=== PATIENT | female | born 1945 | race Caucasian/White ===

== ENCOUNTER 2018-07-07 11:25 | Inpatient (IN) | payer OTHER ==
[2018-07-07 12:26] LABS: Absolute Monocytes 0.7 K/uL (0.1-1.3); Basophils % 1.1 % (0-1.3); Eosinophils % 0.4 % (0-4.4); Hematocrit 38.5 % (36.0-45.0); Lymphocytes % 14.2 % (15.3-44.8); MCH 30.9 pg (27.0-35.0); MCV 90.1 fL (80-100); MPV 7.6 fL (7.6-11.3); Monocytes % 5.3 % (3.3-12.3); RBC Red Blood Cell Count 4.27 M/uL (3.86-4.86)
[2018-07-07] MEDS ORDERED: ALBUTEROL 2.5 MG/3 ML NEB SOL ONE (12:28)
[2018-07-07] MEDS ORDERED: METHYLPREDNISOLONE 125 MG INJ ONE (12:28)
[2018-07-07] MEDS ORDERED: IPRATROPIUM BROM 0.5MG/2.5ML ONE (12:28)
[2018-07-07] MEDS ORDERED: CEFTRIAXONE/SWI 1gm 1 GM/10 ML SYR ONE (12:29)
[2018-07-07] MEDS ORDERED: NA CHLORIDE 0.9% 1,000 ML ONE (12:29)
[2018-07-07] MEDS ORDERED: AZITHROMYCIN 500 MG/250 ML BAG ONE (12:29)
[2018-07-07 12:34] LABS: Protime INR 1.11
--- NOTE | 2018-07-07 12:39 | EKG ---
Test Date: 2018-07-07 Test Time: 11:49:15 E [employer] Analyst: CHRISTINE MEASUREMENT RESULTS: Intervals: Rate: 74 WY: 136 QRSD: 90 QT: 356 QTc: 395 [place]: P: 16 WY: 136 QRS: 21 T: 45 INTERPRETIVE STATEMENTS: Normal sinus rhythm Nonspecific ST and T wave abnormality Abnormal ECG Compared to ECG 09/23/2014 07:42:25 Sinus bradycardia no longer present ST (T wave) deviation still present Electronically Signed On 07-07-18 12:38:39 CDT by Didier Arshad
[2018-07-07 12:47] LABS: Urine Blood NEGATIVE (NEG); Urine Glucose NEGATIVE (NEG); Urine Protein 1+ (NEG); Urine Specific Gravity >1.030 (1.005-1.030); Urine pH 5.5 (5.0-7.0)
[2018-07-07 12:57] LABS: ALT/SGPT 18 U/L (12-78); AST/SGOT 20 U/L (15-37); Albumin 3.3 g/dL (3.4-5.0); Alkaline Phosphatase 94 U/L (45-117); BUN Blood Urea Nitrogen 8 mg/dL (7-18); Bicarbonate 24 mmol/L (21-32); Bilirubin Direct < 0.1 mg/dL (0-0.2); Bilirubin Total 0.3 mg/dL (0.2-1.0); CKMB Creatine Kinase MB < 1.0 ng/mL (0.3-3.6); Creatine Phosphokinase 51 U/L (26-192); Glucose Level 181 mg/dL (74-106); Magnesium 1.5 mg/dL (1.8-2.4); NT PRO-BNP 222 pg/mL (<125); Potassium 3.5 mmol/L (3.5-5.1); Protein, Total 7.9 g/dL (6.4-8.2); Sodium Level 141 mmol/L (136-145)
--- NOTE | 2018-07-07 13:37 | EDPHYS ---
Physician Documentation [facility] Name: Allyn Echeverria Age: 72 yrs Sex: Female : 1945 Arrival Date: 07/07/2018 Time: :29 Bed 6 Private MD: out of town, doctor ED Physician Lamine Urban HPI: 07/07 12:45 This 72 yrs old Female presents to ER via Ambulatory with complaints of emily Breathing Difficulty. 12:45 The patient has shortness of breath at rest, with light activity. Onset: The emily symptoms/episode began/occurred 2 day(s) ago. Duration: The symptoms are continuous, and are steadily getting worse. The patient's shortness of breath has no apparent modifying factors. Associated signs and symptoms: The patient has no apparent associated signs or symptoms. Severity of symptoms: At their worst the symptoms were mild in the emergency department the symptoms are unchanged. The patient has not experienced similar symptoms in the past. Historical: - Allergies: 11:40 Magnevist; jl7 11:40 Sulfa (Sulfonamide Antibiotics); jl7 11:40 Crestor; jl7 11:40 Ciprofloxacin; jl7 11:40 Iodine (Anaphylaxis); jl7 - PMHx: 11:40 Hyperlipidemia; Hypertension; jl7 11:48 COPD; jl7 - PSHx: 11:40 Cholecystectomy; Hysterectomy; Ear Tubes; Tonsillectomy; jl7 - Immunization history:: Adult Immunizations up to date. - Social history:: Smoking status: Patient uses tobacco products, smokes one pack cigarettes per day. - Ebola Screening: : No symptoms or risks identified at this time. - Family history:: not pertinent. ROS: 12:45 Constitutional: Negative for fever, chills, and weight loss, Eyes: Negative for injury, emily pain, redness, and discharge, ENT: Negative for injury, pain, and discharge, Neck: Negative for injury, pain, and swelling, Cardiovascular: Negative for chest pain, palpitations, and edema, Abdomen/GI: Negative for abdominal pain, nausea, vomiting, diarrhea, and constipation, Back: Negative for injury and pain, : Negative for injury, bleeding, discharge, and swelling, MS/Extremity: Negative for injury and deformity, Skin: Negative for injury, rash, and discoloration, Neuro: Negative for headache, weakness, numbness, tingling, and seizure, Psych: Negative for depression, anxiety, suicide ideation, homicidal ideation, and hallucinations, Allergy/Immunology: Negative for hives, rash, and allergies, Endocrine: Negative for neck swelling, polydipsia, polyuria, polyphagia, and marked weight changes, Hematologic/Lymphatic: Negative for swollen nodes, abnormal bleeding, and unusual bruising. 12:45 Respiratory: Positive for cough, shortness of breath, wheezing, expiratory. Exam: 12:45 Constitutional: This is a well developed, well nourished patient who is awake, alert, emily and in no acute distress. Head/Face: Normocephalic, atraumatic. Eyes: Pupils equal round and reactive to light, extra-ocular motions intact. Lids and lashes normal. Conjunctiva and sclera are non-icteric and not injected. Cornea within normal limits. Periorbital areas with no swelling, redness, or edema. ENT: Nares patent. No nasal discharge, no septal abnormalities noted. Tympanic membranes are normal and external auditory canals are clear. Oropharynx with no redness, swelling, or masses, exudates, or evidence of obstruction, uvula midline. Mucous membranes moist. Neck: Trachea midline, no thyromegaly or masses palpated, and no cervical lymphadenopathy. Supple, full range of motion without nuchal rigidity, or vertebral point tenderness. No Meningismus. Chest/axilla: Normal chest wall appearance and motion. Nontender with no deformity. No lesions are appreciated. Cardiovascular: Regular rate and rhythm with a normal S1 and S2. No gallops, murmurs, or rubs. Normal PMI, no JVD. No pulse deficits. Abdomen/GI: Soft, non-tender, with normal bowel sounds. No distension or tympany. No guarding or rebound. No evidence of tenderness throughout. Back: No spinal tenderness. No costovertebral tenderness. Full range of motion. Female : Normal external genitalia. Skin: Warm, dry with normal turgor. Normal color with no rashes, no lesions, and no evidence of cellulitis. MS/ Extremity: Pulses equal, no cyanosis. Neurovascular intact. Full, normal range of motion. Neuro: Awake and alert, GCS 15, oriented to person, place, time, and situation. Cranial nerves II-XII grossly intact. Motor strength 5/5 in all extremities. Sensory grossly intact. Cerebellar exam normal. Normal gait. Psych: Awake, alert, with orientation to person, place and time. Behavior, mood, and affect are within normal limits. 12:45 Respiratory: mild respiratory distress is noted, Respirations: labored breathing, that is mild, Breath sounds: decreased breath sounds, rhonchi, wheezing: expiratory Vital Signs: 11:40 BP 136 / 81; Pulse 84; Resp 22 S; Temp 98.2(O); Pulse Ox 99% on R/A; Weight 84.82 kg jl7 (R); Height 5 ft. 4 in. (162.56 cm) (R); Pain 7/10; 12:45 BP 137 / 75; Pulse 74; Resp 20; Pulse Ox 100% on R/A; jb4 13:15 BP 118 / 65; Pulse 77; Resp 20; Pulse Ox 100% on 7% Nebulizer Mask; jb4 14:15 BP 150 / 89; Pulse 92; Resp 20; Pulse Ox 100% on R/A; Pain 3/10; jb4 15:15 BP 150 / 87; Pulse 88; Resp 18; Pulse Ox 97% on R/A; jb4 11:40 Body Mass Index 32.10 (84.82 kg, 162.56 cm) 7 MDM: 11:49 Patient medically screened. [facility] 12:47 Data reviewed: vital signs, nurses notes, lab test result(s), EKG, radiologic studies, [facility] CT scan, plain films. 07/07 11:52 Order name: Basic Metabolic Panel [facility] 07/07 11:52 Order name: CBC with Diff; Complete Time: 13:32 [facility] 07/07 11:52 Order name: Ckmb; Complete Time: 13:32 [facility] 07/07 11:52 Order name: CPK; Complete Time: 13:32 [facility] 07/07 11:52 Order name: LFT's; Complete Time: 13:32 [facility] 07/07 11:52 Order name: Magnesium; Complete Time: 13:32 [facility] 07/07 11:52 Order name: NT PRO-BNP; Complete Time: 13:32 [facility] 07/07 11:52 Order name: PT-INR; Complete Time: 13:32 [facility] 07/07 11:52 Order name: Ptt, Activated; Complete Time: 13:32 [facility] 07/07 11:52 Order name: Troponin (emerg Dept Use Only); Complete Time: 13:32 [facility] 07/07 11:52 Order name: Blood Culture Adult (2) [facility] 07/07 11:52 Order name: Influenza Screen (a \T\ B); Complete Time: 13:32 [facility] 07/07 11:52 Order name: Basic Metabolic Panel; Complete Time: 13:32 [facility] 07/07 12:40 Order name: Urine Dipstick--Ancillary (enter results); Complete Time: 13:32 07/07 11:52 Order name: XRAY Chest (1 view) [facility] 07/07 11:52 Order name: EKG; Complete Time: 11:53 [facility] 07/07 11:52 Order name: Cardiac monitoring; Complete Time: 13:16 [facility] 07/07 11:52 Order name: EKG - Nurse/Tech; Complete Time: 12:28 [facility] 07/07 11:52 Order name: IV Saline Lock; Complete Time: 12:28 [facility] 07/07 13:34 Order name: CT Chest Wo Con [facility] 07/07 13:40 Order name: CONS Physician Consult [facility] 07/07 14:19 Order name: CT [facility] 07/07 15:06 Order name: Diet Ada 1800 Jayme; Complete Time: 15:06 [facility] 07/07 15:56 Order name: Hemoglobin A1c [facility] 07/07 11:52 Order name: Labs collected and sent; Complete Time: 13:16 [facility] 07/07 11:52 Order name: O2 Per Protocol; Complete Time: 12:28 [facility] 07/07 11:52 Order name: O2 Sat Monitoring; Complete Time: 12:28 [facility] 07/07 11:52 Order name: Urine Dipstick-Ancillary (obtain specimen); Complete Time: 13:23 [facility] Administered Medications: 12:40 Drug: SOLU-Medrol 125 mg Route: IVP; Site: left antecubital; jb4 13:19 Follow up: Response: No adverse reaction jb4 12:40 Drug: Albuterol - atroVENT (3:1) (2.5 mg - 0.5 mg) 3 ml Route: Nebulizer; jb4 13:19 Follow up: Response: No adverse reaction jb4 12:50 Drug: NS 0.9% 1000 ml Route: IV; Rate: 125 ml/hr; Site: left antecubital; jb4 15:57 Follow up: Response: No adverse reaction; IV Status: IV converted to saline lock jb4 12:55 Drug: Rocephin - (cefTRIAXone) 1 grams {Note: Administered over 2 minutes per pharmacy jb4 protocol at this time..} Route: IVPB; Infused Over: 30 mins; Site: left antecubital; 12:57 Follow up: IV Status: Completed infusion jb4 13:25 Follow up: Response: No adverse reaction jb4 12:57 Drug: Zithromax 500 mg Route: IVPB; Infused Over: 1 hrs; Site: left antecubital; jb4 14:35 Follow up: Response: No adverse reaction; IV Status: Completed infusion jb4 14:12 Drug: Magnesium Sulfate 2 grams Route: IVPB; Infused Over: 2 hrs; Site: left jb4 antecubital; 15:57 Follow up: Response: No adverse reaction; IV Status: Completed infusion jb4 Disposition: 07/07/18 13:36 Hospitalization ordered by Lacey Cristobal for Inpatient Admission. Preliminary diagnosis are Dyspnea, Pneumonia due to other specified bacteria, Hypomagnesemia, Tobacco abuse counseling, Tobacco use, Elevated white blood cell count. - Bed requested for Telemetry/MedSurg (Inpatient). - Status is Inpatient Admission. jb4 - Condition is Fair. - Problem is new. - Symptoms have improved. UTI on Admission? No Signatures: Dispatcher [employer] EDMS Lamine Urban MD MD cha Bryson, James, RN RN jb4 Mayo Lara RN RN jl7 Annalee Tay RN RN df Corrections: (The following items were deleted from the chart) 15:22 13:36 Hospitalization Ordered by Lacey Cristobal MD for Inpatient Admission. Preliminary df diagnosis is Dyspnea; Pneumonia due to other specified bacteria; Hypomagnesemia; Tobacco abuse counseling; Tobacco use; Elevated white blood cell count. Bed requested for Telemetry/MedSurg (Inpatient). Status is Inpatient Admission. Condition is Fair. Problem is new. Symptoms have improved. UTI on Admission? No. emily 16:00 15:22 07/07/2018 13:36 Hospitalization Ordered by Lacey Cristobal MD for Inpatient jb4 Admission. Preliminary diagnosis is Dyspnea; Pneumonia due to other specified bacteria; Hypomagnesemia; Tobacco abuse counseling; Tobacco use; Elevated white blood cell count. Bed requested for Telemetry/MedSurg (Inpatient). Status is Inpatient Admission. Condition is Fair. Problem is new. Symptoms have improved. UTI on Admission? No. df
--- NOTE | 2018-07-07 13:37 | ER ---
Nurse's Notes [facility] Name: Allyn Echeverria Age: 72 yrs Sex: Female : 1945 Arrival Date: 07/07/2018 Time: 11:29 Bed 6 Private MD: out of town, doctor Diagnosis: Dyspnea;Pneumonia due to other specified bacteria;Hypomagnesemia;Tobacco abuse counseling;Tobacco use;Elevated white blood cell count Presentation: 07/07 11:36 Presenting complaint: Patient states: My lungs hurt for the last couple of days, having jl7 a hard time breathing. Transition of care: patient was not received from another setting of care. Onset of symptoms was July 05, 2018. Risk Assessment: Do you want to hurt yourself or someone else? Patient reports no desire to harm self or others. Care prior to arrival: None. 11:36 Method Of Arrival: Ambulatory [facility] 11:36 Acuity: KANDY 3 jl7 14:48 Initial Sepsis Screen: Does the patient meet any 2 criteria? RR > 20 per min. Yes Does jb4 the patient have a suspected source of infection? Yes: Productive cough/pneumonia. Triage Assessment: 14:59 Respiratory: the patient has mild shortness of breath. jb4 Historical: - Allergies: 11:40 Magnevist; jl7 11:40 Sulfa (Sulfonamide Antibiotics); jl7 11:40 Crestor; jl7 11:40 Ciprofloxacin; jl7 11:40 Iodine (Anaphylaxis); jl7 - PMHx: 11:40 Hyperlipidemia; Hypertension; jl7 11:48 COPD; jl7 - PSHx: 11:40 Cholecystectomy; Hysterectomy; Ear Tubes; Tonsillectomy; jl7 - Immunization history:: Adult Immunizations up to date. - Social history:: Smoking status: Patient uses tobacco products, smokes one pack cigarettes per day. - Ebola Screening: : No symptoms or risks identified at this time. - Family history:: not pertinent. Screenin:15 Abuse screen: Denies threats or abuse. Nutritional screening: No deficits noted. jb4 Tuberculosis screening: No symptoms or risk factors identified. Fall Risk IV access (20 points). Total Owen Fall Scale indicates No Risk (0-24 pts). Assessment: 12:15 General: Appears in no apparent distress. uncomfortable, Behavior is calm, cooperative, jb4 appropriate for age. Pain: Complains of pain in chest Pain does not radiate. Pain currently is 6 out of 10 on a pain scale. at worst was 10 out of 10 on a pain scale. Quality of pain is described as "like a bat is hitting me." Pain began 2-3 days ago. Is intermittent. Neuro: Level of Consciousness is awake, alert, obeys commands, Oriented to person, place, time, situation. Cardiovascular: Heart tones S1 S2 present Patient's skin is warm and dry. Rhythm is sinus rhythm. Respiratory: Reports shortness of breath cough that is non-productive, Airway is patent Respiratory effort is even, labored, Breath sounds are diminished bilaterally. Onset: The symptoms/episode began/occurred Saturday. GI: Abdomen is round Bowel sounds present X 4 quads. : No signs and/or symptoms were reported regarding the genitourinary system. EENT: No signs and/or symptoms were reported regarding the EENT system. Derm: Skin is intact, Skin is pink, warm \\T\\ dry. Musculoskeletal: No signs and/or symptoms reported regarding the musculoskeletal system. 13:27 Reassessment: Patient appears in no apparent distress at this time. Patient and/or jb4 family updated on plan of care and expected duration. Pain level reassessed. Pt reports breathing better after breathing treatment. 13:50 Reassessment: Pt left for CT. jb4 14:10 Reassessment: Patient appears in no apparent distress at this time. Patient and/or jb4 family updated on plan of care and expected duration. Pain level reassessed. Pt back from CT. Family is at the bedside. 14:40 Reassessment: Dr. Cristobal at the bedside. jb4 15:10 Reassessment: Patient appears in no apparent distress at this time. Patient and/or jb4 family updated on plan of care and expected duration. Pain level reassessed. Pt reports feeling better. family at the bedside. Vital Signs: 11:40 BP 136 / 81; Pulse 84; Resp 22 S; Temp 98.2(O); Pulse Ox 99% on R/A; Weight 84.82 kg jl7 (R); Height 5 ft. 4 in. (162.56 cm) (R); Pain 7/10; 12:45 BP 137 / 75; Pulse 74; Resp 20; Pulse Ox 100% on R/A; jb4 13:15 BP 118 / 65; Pulse 77; Resp 20; Pulse Ox 100% on 7% Nebulizer Mask; jb4 14:15 BP 150 / 89; Pulse 92; Resp 20; Pulse Ox 100% on R/A; Pain 3/10; jb4 15:15 BP 150 / 87; Pulse 88; Resp 18; Pulse Ox 97% on R/A; jb4 11:40 Body Mass Index 32.10 (84.82 kg, 162.56 cm) jl7 ED Course: 11:29 Patient arrived in ED. mr 11:29 out of town, doctor is Private Physician. mr 11:37 Triage completed. jl7 11:40 Arm band placed on right wrist. jl7 11:49 Lamine Urban MD is Attending Physician. emily 11:56 EKG done, by vascular ultrasound technician. reviewed by Lamine Urban MD. at1 12:15 Patient has correct armband on for positive identification. Placed in gown. Bed in low jb4 position. Call light in reach. Side rails up X2. tutor on. Pulse ox on. NIBP on. 12:15 Inserted saline lock: 20 gauge in left antecubital area, using aseptic technique. Blood jb4 collected. 12:25 Urine collected: clean catch specimen, clear, lui colored. jp3 12:27 Juancarlos Haynes, AMY is Primary Nurse. jb4 12:45 Initial lab(s) drawn, by nj, sent to lab. First set of blood cultures drawn Second set jb4 of blood cultures drawn by me. 13:25 X-ray completed. Portable x-ray completed in exam room. Patient tolerated procedure ml well. 13:26 XRAY Chest (1 view) In Process Unspecified. EDMS 13:35 Lacey Cristobal MD is Hospitalizing Provider. emily 15:58 No provider procedures requiring assistance completed. Patient admitted, IV remains in jb4 place. Administered Medications: 12:40 Drug: SOLU-Medrol 125 mg Route: IVP; Site: left antecubital; jb4 13:19 Follow up: Response: No adverse reaction jb4 12:40 Drug: Albuterol - atroVENT (3:1) (2.5 mg - 0.5 mg) 3 ml Route: Nebulizer; jb4 13:19 Follow up: Response: No adverse reaction jb4 12:50 Drug: NS 0.9% 1000 ml Route: IV; Rate: 125 ml/hr; Site: left antecubital; jb4 15:57 Follow up: Response: No adverse reaction; IV Status: IV converted to saline lock jb4 12:55 Drug: Rocephin - (cefTRIAXone) 1 grams {Note: Administered over 2 minutes per pharmacy jb4 protocol at this time..} Route: IVPB; Infused Over: 30 mins; Site: left antecubital; 12:57 Follow up: IV Status: Completed infusion jb4 13:25 Follow up: Response: No adverse reaction jb4 12:57 Drug: Zithromax 500 mg Route: IVPB; Infused Over: 1 hrs; Site: left antecubital; jb4 14:35 Follow up: Response: No adverse reaction; IV Status: Completed infusion jb4 14:12 Drug: Magnesium Sulfate 2 grams Route: IVPB; Infused Over: 2 hrs; Site: left jb4 antecubital; 15:57 Follow up: Response: No adverse reaction; IV Status: Completed infusion jb4 Outcome: 13:36 Decision to Hospitalize by Provider. emily 15:58 Admitted to Tele accompanied by tech, via wheelchair, room 429, with chart, Report jb4 called to AMY Brady 15:58 Condition: stable 15:58 Instructed on the need for admit, Demonstrated understanding of instructions. 16:00 Patient left the ED. jb4 Signatures: Dispatcher [employer] EDLamine Landin MD MD cha Rivera, Maria Nelson, Keely Aguirre, senior consumer insights consultant EKG Tat1 Juancarlos Haynes RN RN jb4 Mayo Lara RN RN jl7 Kale Arias jp3 Corrections: (The following items were deleted from the chart) 13:17 12:15 Cardiovascular: Heart tones S1 S2 present Patient's skin is warm and dry. Rhythm jb4 is jb4 14:43 12:55 Rocephin - (cefTRIAXone) 1 grams IVPB in left antecubital over 30 mins jb4 jb4 14:51 14:48 Initial Sepsis Screen: Does the patient meet any 2 criteria? Does the patient jb4 have a suspected source of infection? Yes: Productive cough/pneumonia jb4
--- NOTE | 2018-07-07 13:40 | RAD REPORT ---
EXAM DESCRIPTION: RAD - Chest Single View - 07/07/2018 1:26 pm CLINICAL HISTORY: Difficulty breathing, COPD, hypertension COMPARISON: August 2014 TECHNIQUE: AP portable chest image was obtained 1319 hours . FINDINGS: Masslike density is superimposed on the right hilum representing a substantial change from the 2014 study. There is interstitial and alveolar opacification in the lower right lung field parti ally obscuring the right hemidiaphragm. Small right pleural effusion is present. Trachea has not young ged in positioning. Left lung field is clear. Heart size is normal. No left-sided pleural effusion. N o pneumothorax. No gross bony abnormality seen. No acute aortic findings suspected. IMPRESSION: Right base pleural and parenchymal opacification along with masslike density at the righ t hilum. In the acute clinical setting this could all be related to pneumonia. Underlying malignancy cannot be excluded for the hilum finding. Contrast-enhanced CT imaging may be helpful for further characterization.
[2018-07-07] MEDS ORDERED: Magnesium Sulfate 2gm IVPB 2 G/50 ML BAG IV ONE (14:11)
--- NOTE | 2018-07-07 14:18 | RAD REPORT ---
EXAM DESCRIPTION: CT - Thorax Wo Con - 07/07/2018 2:03 pm CLINICAL HISTORY: Difficulty breathing, hypertension, abnormal chest film COMPARISON: Portable chest July 07 TECHNIQUE: Axial 5 mm thick images of the chest were obtained without IV contrast. All CT scans are performed using dose optimization technique as appropriate and may include automated exposure control or mA/KV adjustment according to patient size. FINDINGS: In the superior right lower lobe at the hilum there is a 6 centimeter rounded mass. Margin s are lobulated with stranding or spiculation changes present as well. There is interstitial and alve olar opacification that extends into the posterior and lateral right base. A minimal right pleural ef fusion is seen. The right lower lobe mass encircles and at least partially obstructs the right lower lobe bronchus and segmental bronchi. The right lower lobe mass does abut both the major and minor fis sures on the right. No definitive breech of the fissures. No other mass or nodularity on the right. L eft lung field is clear. No left-sided pleural effusion. No pneumothorax. No abnormal mediastinal or hilar masses or lymphadenopathy seen. No gross aortic or pulmonary artery finding suspected. Assessment is limited in the absence of IV contrast. No pericardial effusion. No chest wall mass or abnormal axillary lymphadenopathy. A 2.7 centimeter right adrenal mass is present only partially imaged. IMPRESSION: A 6 centimeter right infrahilar and right lower lobe mass is present with small right pl eural effusion and right lung base airspace opacification. Single most likely etiology is right lower lobe malignancy with postobstructive pneumonia at the base . An atypical masslike pneumonia is felt to be significantly less likely etiology. A 2.7 centimeter right adrenal mass is present only partially imaged.
[2018-07-07] MEDS ORDERED: IPRATROPIUM BROM 0.5MG/2.5ML NEB PRN (14:23)
[2018-07-07] MEDS ORDERED: ALBUTEROL 2.5 MG/3 ML NEB SOL NEB PRN (14:23)
[2018-07-07] MEDS ORDERED: ONDANSETRON 4 MG/2 ML VIAL IV PRN (14:23)
[2018-07-07 16:27] VITALS: BMI 32.1
[2018-07-07] MEDS ORDERED: POTASSIUM 25 MEQ EFFERV TAB PO ONE (17:00)
[2018-07-07] MEDS: INSULIN -REGULAR HUMAN 50 UNIT/0.5 ML ML SQ SCH ×2 (18:09→20:56)
[2018-07-07] MEDS ORDERED: CEFTRIAXONE 1 GM/NS 50 ML 50 ML IV SCH (21:00)
[2018-07-07] MEDS: ACETAMINOPHEN 500 MG TAB PO PRN (22:12)
[2018-07-07] MEDS: CEFTRIAXONE/SWI 1gm 1 GM/10 ML SYR IV SCH (23:37)
--- NOTE | 2018-07-08 01:42 | HP ---
Date of Admission: 07/07/2018 Primary Care Physician: Nurse practitioner in [place]. Code Status: Do not resuscitate. The patient has a living will. No medical power of pit clerk. History Of Present Illness: The patient is a 72-year-old female with past medical history of hypothy roidism; diabetes mellitus type 2, which is diet controlled; history of cigarette smoking for the pas t 66 years; COPD, on oxygen p.r.n.; hypertension, who was in her usual state of health until 3 days p rior to admission when the patient had sudden onset of ear pain, some congestion, and sinusitis type symptoms. The patient went to see her primary care provider, was given ear drops, however, did not h ave any improvement. She went back and was placed on p.o. antibiotics with amoxicillin. The patient has taken more than 2 days worth of medications. The patient does report some improvement in her co ndition. She also reported some shortness of breath that is more than her baseline. She is having t o use her nebulizer treatments and oxygen since Saturday around the clock. She denies any significant sputum production or cough. She also describes some pain around the right lateral chest which is rad iating to the left. The patient therefore came in for further evaluation of her symptoms. Her sympt oms are constant, moderate, progressively worsening. Upon arrival, her vital signs showed some tachy pnea. She was 99% on room air. Her workup revealed a white count of 13.9 with left shift. Magnesiu m was low at 1.5. Troponin was negative. The patient was then referred for admission. The patient was given breathing treatments and IV antibiotics as well as magnesium. Influenza screen was done wh ich was negative. When the patient was seen, she was awake, alert, oriented x3, in some mild distres s, accompanied by her daughter. Past Medical History: Hypothyroidism; hypertension; diabetes mellitus type 2, treated with diet javy fications; COPD, on oxygen as needed; gastroesophageal reflux disease. Past Surgical History: Cholecystectomy, hysterectomy, tonsillectomy. Allergies: TO CIPRO, CAUSES RASH; CRESTOR, WHICH CAUSES TENDONITIS; SULFA, CAUSES ANAPHYLAXIS; AND M RI CONTRAST, WHICH ALSO CAUSES ANAPHYLAXIS. Medications: List reviewed. Social History: The patient smokes a pack a day. She has been smoking for the past 66 years. No al cohol use or illicit drug use. The patient lives at home, has good social support. Family History: The patient states that heart disease and strokes run in the family. Review of Systems: An 11-point system reviewed, negative except as per HPI. Physical Examination: Vital Signs: Blood pressure 136/81, pulse 84, respirations 22, temperature 98.2, O2 99% on room air. General: Awake, alert, oriented x3, in some mild distress. HEENT: Normocephalic, atraumatic. PERRLA. EOMI. Moist mucous membranes. Oropharynx is clear. Po or dentition. Conjunctivae are anicteric. Neck: Supple. No JVD. Trachea midline. CV: S1, S2. Regular rate and rhythm. Peripheral pulses present. Significant pulses weak bilateral ly. Respiratory: Diminished breath sounds on the right. No wheezing. No stridor. No use of accessory muscles. The patient is slightly tachypneic. Gastrointestinal: Abdomen is soft, nontender, nondistended. Positive bowel sounds. No hepatomegaly . Extremities: No clubbing, cyanosis, or edema. No calf tenderness. Neuro: Cranial nerves 2 through 12 intact grossly. No focal neurological deficit. Speech is normal . Strength is 5/5 bilateral upper and lower extremities. Sensation intact to light touch. Skin: No rashes. Normal skin turgor. The patient does have a healing abrasion on the left lower ex tremity. Psych: Mood is okay. Affect is full. Insight and judgment are fair. Laboratory Data: UA shows negative nitrite, negative leukocyte. Sodium 141, potassium 3.5, chloride 107, CO2 24, BUN 8, creatinine 0.8, glucose 181, calcium 9, magnesium 1.5. Troponin less than 0.02. BNP 222. Albumin 3.3. INR 1.11. WBC 13.9, H and H 13.2/38.5, platelets 478, neutrophils 79%. CT chest personally reviewed shows a 6 cm right infrahilar and right lower lobe mass present with small right pleural effusion and right lung base airspace opacification. The most likely etiology is righ t lower lobe malignancy with postobstructive pneumonia at the base. A 2.7 cm right adrenal mass is p resent, only partially imaged. Chest x-ray, personally reviewed, shows right base pleural and parenc hymal opacification along with mass-like density at the right hilum. EKG shows normal sinus rhythm, nonspecific ST-T wave abnormality, rate of 74. Assessment: A 72-year-old female with: 1.Right lower lobe pneumonia with small pleural effusion. We will continue with IV antibiotics. Ob tain blood cultures and sputum cultures. Likely postobstructive pneumonia. 2.Right infrahilar and right lower lobe mass 6 cm, likely malignancy. The patient has a significant history of smoking. Pulmonology has been consulted. Will likely need biopsy versus possible bronch oscopy. We will discuss further with Dr. Grey. The patient made aware of the diagnosis. She wi shes to undergo further workup including invasive measurements such as biopsy. She understands that she may need radiation chemotherapy to which she is agreeable. 3.Hypothyroidism. We will resume home dose of Synthroid. 4.Diabetes mellitus type 2, non-insulin dependent with hyperglycemia. We will check hemoglobin A1c. The patient is only on diet modification. 5.Chronic obstructive pulmonary disease, chronic bronchitis, uses oxygen as needed. 6.Gastroesophageal reflux disease without esophagitis. 7.Hyperlipidemia, also diet controlled. 8.Essential hypertension. We will resume home medications as appropriate. 9.Gastrointestinal and deep venous thrombosis prophylaxis with PPI and Lovenox. Plan: Admit the patient to Med-Surg, place as inpatient. Overall poor prognosis. DINO Voice ID: [id number]
[2018-07-08 04:14] LABS: Absolute Lymphocytes (CBC) 2.2 K/uL (0.7-4.9); Absolute Monocytes 0.8 K/uL (0.1-1.3); Basophils % 0.7 % (0-1.3); Eosinophils % 0.1 % (0-4.4); Hematocrit 37.4 % (36.0-45.0); Lymphocytes % 18.4 % (15.3-44.8); MCH 30.7 pg (27.0-35.0); MCV 90.8 fL (80-100); MPV 7.7 fL (7.6-11.3); Monocytes % 6.6 % (3.3-12.3); RBC Red Blood Cell Count 4.12 M/uL (3.86-4.86)
[2018-07-08 04:25] LABS: BUN Blood Urea Nitrogen 9 mg/dL (7-18); Bicarbonate 26 mmol/L (21-32); Glucose Level 181 mg/dL (74-106); Magnesium 1.8 mg/dL (1.8-2.4); Potassium 4.2 mmol/L (3.5-5.1); Sodium Level 140 mmol/L (136-145)
[2018-07-08] MEDS: PANTOPRAZOLE 40MG TABLET PO SCH (05:54)
[2018-07-08] MEDS: LEVOTHYROXINE SOD 0.1 MG TAB PO SCH (05:54)
[2018-07-08] MEDS ORDERED: MAGNESIUM SULFATE 1 gm IVPB 1 GM/100 ML BAG IV ONE (06:00)
[2018-07-08] MEDS: INSULIN -REGULAR HUMAN 50 UNIT/0.5 ML ML SQ SCH ×4 (07:30→21:00)
[2018-07-08] MEDS: HOME MED 1 EA UNK (Fluticasone Propionate [Flovent Diskus] 50 MCG) IH SCH (09:00)
[2018-07-08] MEDS ORDERED: ENOXAPARIN 40 MG/0.4 ML SQ SCH (09:00)
[2018-07-08] MEDS ORDERED: AZITHROMYCIN IV 500 MG in NA CHLORIDE 0.9% 250 ML IVPB SCH (09:00)
[2018-07-08] MEDS: CEFTRIAXONE/SWI 1gm 1 GM/10 ML SYR IV SCH (09:31)
--- NOTE | 2018-07-08 11:53 | P.CNS ---
Date of Consult: 07/08/18 Reason for Consult: Right-sided lung mass Chief Complaint: Right-sided pleuritic chest pain History of Present Illness: Patient is 72 years of age she said and a ear infection for the past 3 weeks over last Shemar she started complaining of for right-sided pleuritic chest pain denies any fever chills no cough sputum denies any weight loss patient is a heavy smoker and was found lung mass with a pleural effusion denies any other complaints continues to smoke heavily Allergies ciprofloxacin [From Cipro] Allergy (Verified 09/22/14 21:42) Rash ciprofloxacin HCl [From Cipro] Allergy (Verified 09/22/14 21:42) Rash gadopentetic acid [From Magnevist] Allergy (Unverified 07/07/18 16:05) Unknown iodine Allergy (Unverified 07/07/18 16:05) Unknown rosuvastatin calcium [From Crestor] Allergy (Verified 09/22/14 21:42) TENDONITIS Sulfa (Sulfonamide Antibiotics) Allergy (Verified 09/22/14 21:42) Anaphylaxis MRI CONTRAST Allergy (Uncoded 09/22/14 21:42) Anaphylaxis Home Medications: Albuterol Inhaler [Ventolin Inhaler] 2 puff IH BID 6AM 6PM 07/07/18 Albuterol Neb [Proventil 0.083% Neb Soln] 2.5 mg NEB Q4H PRN 07/07/18 Ergocalciferol (Vitamin D2) [Vitamin D2] 2,000 unit PO DAILY 07/07/18 Fluticasone Propionate [Flovent Diskus] 50 mcg IH DAILY 07/07/18 Ibuprofen 200 mg PO Q4H PRN 07/07/18 Levothyroxine Sodium 100 mcg PO DAILY 07/07/18 Magnesium Oxide [Magnesium] 500 mg PO DAILY 07/07/18 Omeprazole 20 mg PO DAILY 07/07/18 - Past Medical/Surgical History Diabetic: Yes -: GERD -: COPD -: DM -: HYPOTHYROIDISM -: HTN -: HYPERLIPIDIMIA -: CHOLECYSTECTOMY -: HYSTERECTOMY - Family History Father Medical History: Heart disease, Stroke Mother Medical History: Heart disease, Stroke - Social History Smoking Status: Current every day smoker Alcohol use: No CD- Drugs: No Caffeine use: Yes Place of Residence: Home Review of Systems 10-point ROS is otherwise unremarkable Physical Examination Temp Pulse Resp BP Pulse Ox 97.4 F 74 18 180/82 H 98 07/08/18 11:43 07/08/18 11:43 07/08/18 11:43 07/08/18 11:43 07/08/18 11:43 General: Alert, Oriented x3 Neck: Supple Respiratory: Clear to auscultation bilaterally Cardiovascular: No edema, Regular rate/rhythm, Normal S1 S2 Gastrointestinal: Normal bowel sounds, Soft and benign Musculoskeletal: No clubbing, No swelling Laboratory Data (last 24 hrs) 07/07/18 12:05: PT 13.1 H, INR 1.11, APTT 31.1 07/07/18 12:05: WBC 13.9 H, Hgb 13.2, Hct 38.5, Plt Count 478 H 07/07/18 12:05: Sodium 141, Potassium 3.5, BUN 8, Creatinine 0.80, Glucose 181 H , Magnesium 1.5 L, Total Bilirubin 0.3, AST 20, ALT 18, Alkaline Phosphatase 94 - Problems (1) Lung cancer Current Visit: Yes Status: Acute Plan: Patient is 72 years of age admitted with I said pleuritic pain she has a large right lower lobe lung mass was likely she has lung cancer no evidence of sepsis labs reviewed white count is mildly elevated I discuss with the patient she will need a bronchoscopy will try and schedule for tomorrow morning with MRI of the brain once cancerous confirmed and a PET scan and to see an oncologist there may be some leg infection I have added Augmentin patient is allergic to fluoroquinolones Qualifiers: Laterality: right
[2018-07-08] MEDS: predniSONE 20 MG TAB PO SCH ×2 (12:58→21:45)
--- NOTE | 2018-07-08 14:38 | P.PN ---
Subjective Date of Service: 07/08/18 Chief Complaint: Right-sided pleuritic chest pain doing better less productive of sputum Physical Examination - Vital Signs Temperature: 97.4 F Blood Pressure: 180/82 Pulse: 74 Respirations: 18 Pulse Ox (%): 98 - Physical Exam General: Alert, In no apparent distress HEENT: Atraumatic, PERRLA, EOMI Neck: Supple, JVD not distended Respiratory: Clear to auscultation bilaterally, Normal air movement Cardiovascular: Regular rate/rhythm, Normal S1 S2 Gastrointestinal: Normal bowel sounds, No tenderness Musculoskeletal: No tenderness Integumentary: No rashes Neurological: Normal speech, Normal tone, Normal affect Lymphatics: No axilla or inguinal lymphadenopathy - Studies Microbiology Data (last 24 hrs): 07/07/18 12:10 Nasopharnyx Influenza Type A Antigen Screen - Final 07/07/18 12:10 Nasopharnyx Influenza Type B Antigen Screen - Final Medications List Reviewed: Yes Assessment And Plan - Current Problems (Diagnosis) (1) Pneumonia Current Visit: Yes Status: Acute (2) Pneumonia, aspiration Current Visit: Yes Status: Acute (3) COPD exacerbation Onset Date: 07/08/18 Current Visit: Yes Status: Acute (4) Lung cancer Current Visit: Yes Status: Acute Qualifiers: Laterality: right - Plan Change to PO ABX Augamentdebbie Bronco tomorrow per Dr Pettit Home O2 DNR
[2018-07-08] MEDS: ARFORMOTEROL TARTRATE 15 MCG/2 ML VIAL.NEB NEB SCH (20:03)
[2018-07-08] MEDS: AMOX/K CLAV 500 MG TAB PO SCH (21:45)
[2018-07-08] MEDS: HYDRALAZINE HCL 20 MG/ML VIAL IV PRN (21:46)
[2018-07-09 04:28] LABS: Magnesium 1.9 mg/dL (1.8-2.4); Potassium 4.2 mmol/L (3.5-5.1)
[2018-07-09] MEDS: PANTOPRAZOLE 40MG TABLET PO SCH (06:30)
[2018-07-09] MEDS: LEVOTHYROXINE SOD 0.1 MG TAB PO SCH ×2 (06:30→11:28)
[2018-07-09] MEDS: INSULIN -REGULAR HUMAN 50 UNIT/0.5 ML ML SQ SCH ×3 (07:27→17:12)
[2018-07-09] MEDS ORDERED: EPHEDRINE SULF 50 MG/ML SYR ONE (07:41)
[2018-07-09] MEDS ORDERED: GLYCOPYRROLATE 0.2 MG/ML SYR ONE (07:42)
[2018-07-09] MEDS ORDERED: Phenylephrine HCl 10 MG/ML 1 ML VIAL ONE (07:42)
[2018-07-09] MEDS ORDERED: LIDOCAINE 1% MPF 5 ML VIAL ONE (07:43)
[2018-07-09] MEDS: LIDOCAINE 4% TOP SOLUTION ONE ×2 (07:45→07:55)
[2018-07-09] MEDS ORDERED: LABETALOL HCL 100 MG/20 ML ONE (07:46)
[2018-07-09] MEDS: ARFORMOTEROL TARTRATE 15 MCG/2 ML VIAL.NEB NEB SCH (08:00)
[2018-07-09] MEDS ORDERED: LIDOCAINE 1% MPF 2 ML AMPULE ONE (08:10)
[2018-07-09] MEDS ORDERED: PROPOFOL 200 MG/20 ML VIAL IV ONE (08:10)
--- NOTE | 2018-07-09 08:33 | P.OP ---
Date of Service: 07/09/18 (Asked to we with the right lower lobe superior segmental endobronchial biopsy, wire brushing and BAL) Findings and Operative Technique Patient is 72 years of age evaluated by me for a right lower lobe lung mass For obtaining informed consent from the patient she was premedicated by anesthesia Findings normal vocal cords normal trachea normal erin normal left-sided bronchial anatomy. The superior segment a right lower lobe mass was visible the triple biopsies wire brushing sick and a BAL was performed Patient did not experience any arrhythmias or hypotension or hypoxemia Transfer to the floor in satisfactory condition
--- NOTE | 2018-07-09 08:53 | RAD REPORT ---
EXAM DESCRIPTION: RAD - FLUORO-GUIDE FOR BRONCH UPT1HR - 07/09/2018 8:45 am CLINICAL HISTORY: Lung mass FINDINGS: Three fluoroscopic spot images are submitted. A bronchoscope is present within the right l debra. Exam was performed by Fluoroscopy time 41 seconds
[2018-07-09] MEDS ORDERED: LOSARTAN POTASSIUM 50 MG TABLET PO SCH (09:00)
[2018-07-09] MEDS: HOME MED 1 EA UNK (Fluticasone Propionate [Flovent Diskus] 50 MCG) IH SCH (09:00)
[2018-07-09] MEDS ORDERED: AMLODIPINE 5 MG TAB PO SCH (09:00)
--- NOTE | 2018-07-09 09:59 | RAD REPORT ---
EXAM DESCRIPTION: [facility] Single View07/09/2018 9:34 am CLINICAL HISTORY: Lung mass COMPARISON: July 07, 2018 FINDINGS: A right pneumothorax is not seen status post bronchoscopy
[2018-07-09] MEDS: predniSONE 20 MG TAB PO SCH (11:29)
[2018-07-09] MEDS: ACETAMINOPHEN 500 MG TAB PO PRN (11:29)
[2018-07-09] MEDS: AMOX/K CLAV 500 MG TAB PO SCH (11:29)
[2018-07-09] MEDS: HYDRALAZINE HCL 20 MG/ML VIAL IV PRN (12:58)
--- NOTE | 2018-07-09 16:06 | P.DS ---
Admission Date: 07/07/18 Discharge Date: 07/09/18 Disposition: ROUTINE DISCHARGE Discharge Condition: GOOD Reason for Admission: Right-sided pleuritic chest pain - Problems (1) Pneumonia Current Visit: Yes Status: Acute Qualifiers: Pneumonia type: aspiration pneumonia Laterality: right Lung location: lower lobe of lung (2) Pneumonia, aspiration Current Visit: Yes Status: Acute Qualifiers: Laterality: right Lung location: lower lobe of lung (3) COPD exacerbation Onset Date: 07/08/18 Current Visit: Yes Status: Acute (4) Lung cancer Current Visit: Yes Status: Chronic Qualifiers: Laterality: right Lung location: lower lobe of lung Qualified Code(s): C34.31 - Malignant neoplasm of lower lobe, right bronchus or lung Brief History of Present Illness: The patient is a 72-year-old female with past medical history of hypothyroidism ; diabetes mellitus type 2, which is diet controlled; history of cigarette smoking for the past 66 years; COPD, on oxygen p.r.n.; hypertension, who was in her usual state of health until 3 days prior to admission when the patient had sudden onset of ear pain, some congestion, and sinusitis type symptoms. The patient went to see her primary care provider, was given ear drops, however, did not have any improvement. She went back and was placed on p.o. antibiotics with amoxicillin. The patient has taken more than 2 days worth of medications. The patient does report some improvement in her condition. She also reported some shortness of breath that is more than her baseline. She is having to use her nebulizer treatments and oxygen since Saturday around the clock. She denies any significant sputum production or cough. She also describes some pain around the right lateral chest which is radiating to the left. The patient therefore came in for further evaluation of her symptoms. Her symptoms are constant, moderate, progressively worsening. Upon arrival, her vital signs showed some tachypnea. She was 99% on room air. Her workup revealed a white count of 13.9 with left shift. Magnesium was low at 1.5. Troponin was negative. The patient was then referred for admission. The patient was given breathing treatments and IV antibiotics as well as magnesium. Influenza screen was done which was negative. When the patient was seen, she was awake, alert, oriented x3, in some mild distress, accompanied by her daughter. Hospital Course: CT revealed right lung mass. She underwent bronchoscopy today without complication. She feels much better, and is discharged home on augamentin. F/U clinic pathology. Vital Signs/Physical Exam: Temp Pulse Resp BP Pulse Ox 96.8 F 66 18 213/96 H 99 07/09/18 12:00 07/09/18 12:00 07/09/18 12:00 07/09/18 12:00 07/09/18 12:00 General: Alert, In no apparent distress HEENT: Atraumatic, PERRLA, EOMI Neck: Supple, JVD not distended Respiratory: Clear to auscultation bilaterally, Normal air movement Cardiovascular: Regular rate/rhythm, Normal S1 S2 Gastrointestinal: Normal bowel sounds, No tenderness Musculoskeletal: No tenderness Integumentary: No rashes Neurological: Normal speech, Normal tone, Normal affect Lymphatics: No axilla or inguinal lymphadenopathy Laboratory Data at Discharge: WBC 12.2 K/uL (4.3-10.9) H 07/08/18 03:26 Hgb 12.6 g/dL (12.0-15.0) 07/08/18 03:26 Hct 37.4 % (36.0-45.0) 07/08/18 03:26 Plt Count 458 K/uL (152-406) H 07/08/18 03:26 PT 13.1 SECONDS (9.5-12.5) H 07/07/18 12:05 INR 1.11 07/07/18 12:05 APTT 31.1 SECONDS (24.3-36.9) 07/07/18 12:05 Sodium 140 mmol/L (136-145) 07/09/18 03:56 Potassium 4.2 mmol/L (3.5-5.1) 07/09/18 03:56 BUN 13 mg/dL (7-18) 07/09/18 03:56 Creatinine 0.80 mg/dL (0.55-1.3) 07/09/18 03:56 Glucose 257 mg/dL (74-106) H 07/09/18 03:56 Magnesium 1.9 mg/dL (1.8-2.4) 07/09/18 03:56 Total Bilirubin 0.3 mg/dL (0.2-1.0) 07/07/18 12:05 AST 20 U/L (15-37) 07/07/18 12:05 ALT 18 U/L (12-78) 07/07/18 12:05 Alkaline Phosphatase 94 U/L (45-117) 07/07/18 12:05 Home Medications: Albuterol Inhaler [Ventolin Inhaler*] 2 puff IH BID 6AM 6PM 07/07/18 Albuterol Neb [Proventil 0.083% Neb Soln] 2.5 mg NEB Q4H PRN 07/07/18 Ergocalciferol (Vitamin D2) [Vitamin D2] 2,000 unit PO DAILY 07/07/18 Fluticasone Propionate [Flovent Diskus] 50 mcg IH DAILY 07/07/18 Ibuprofen 200 mg PO Q4H PRN 07/07/18 Levothyroxine Sodium 100 mcg PO DAILY 07/07/18 Magnesium Oxide [Magnesium] 500 mg PO DAILY 07/07/18 Omeprazole 20 mg PO DAILY 07/07/18 Albuterol Neb [Proventil 0.083% Neb Soln] 2.5 mg NEB Q6HP PRN #30 amp 07/09/18 Amlodipine [Norvasc*] 5 mg PO DAILY #30 tab 07/09/18 Amox/Clavulanate [Augmentin 500-125 mg Tab*] 500 mg PO BID #30 tab 07/09/18 Arformoterol Tartrate [Brovana] 15 mcg NEB BIDRESP #30 vial.neb 07/09/18 Ipratropium Neb [Atrovent*] 0.5 mg NEB [id number] PRN #30 amp 07/09/18 Losartan Potassium [Cozaar*] 50 mg PO DAILY #30 tablet 07/09/18 predniSONE [Prednisone*] 20 mg PO BID #20 tab 07/09/18 New Medications: Albuterol Neb [Proventil 0.083% Neb Soln] 2.5 mg NEB Q6HP PRN #30 amp PRN Reason: Shortness Of Breath Amlodipine [Norvasc*] 5 mg PO DAILY #30 tab Amox/Clavulanate [Augmentin 500-125 mg Tab*] 500 mg PO BID #30 tab Arformoterol Tartrate [Brovana] 15 mcg NEB BIDRESP #30 vial.neb Ipratropium Neb [Atrovent*] 0.5 mg NEB [id number] PRN #30 amp PRN Reason: Wheezing Losartan Potassium [Cozaar*] 50 mg PO DAILY #30 tablet predniSONE [Prednisone*] 20 mg PO BID #20 tab Diet: Regular Activity: Ad ahsan Followup: Guru Grey MD [ACTIVE - CAN ADMIT] - 1 Week Time spent managing pt's care (in minutes): 35
[2018-07-09 16:31] VITALS: BP 147/68; TEMP 98
[2018-07-09 17:48] VITALS: O2SAT 97
== END 2018-07-09 19:56 | disposition home or self-care (01) | DRG 166 ==
LOC: ER 11:25 → ERHOLD 13:37 → 4TH 15:40
PROVIDERS: ADMIT Family Medicine; ATTEND Internal Medicine Hematology & Oncology
PROC: 0BD68ZX Extraction of Right Lower Lobe Bronchus, Via Natural or Artificial Opening Endoscopic, Diagnostic (ICD-10-PCS; 2018-07-09)
PROC: 0B9F8ZX Drainage of Right Lower Lung Lobe, Via Natural or Artificial Opening Endoscopic, Diagnostic (ICD-10-PCS; principal; 2018-07-09 08:00)
DX: C34.31 Malignant neoplasm of lower lobe, right bronchus or lung (principal); J69.0 Pneumonitis due to inhalation of food and vomit; J44.1 Chronic obstructive pulmonary disease with (acute) exacerbation; K21.9 Gastro-esophageal reflux disease without esophagitis; E11.65 Type 2 diabetes mellitus with hyperglycemia; E03.9 Hypothyroidism, unspecified; I10 Essential (primary) hypertension; F17.210 Nicotine dependence, cigarettes, uncomplicated; E83.42 Hypomagnesemia; Z66 Do not resuscitate; E78.5 Hyperlipidemia, unspecified; Z88.2 Allergy status to sulfonamides; Z88.8 Allergy status to other drugs, medicaments and biological substances; Z88.1 Allergy status to other antibiotic agents; Z91.041 Radiographic dye allergy status; Z99.81 Dependence on supplemental oxygen
CPT/HCPCS: 36415; 71045; 71250; 76000; 80048; 80076; 81003; 82550; 82553; 82962; 83036; 83735; 83880; 84484; 85025; 85610; 85730; 87015; 87040; 87102; 87116; 87206; 87804; 88108; 88305; 93005; 94640; 94760; 96365; 96366; 96375; 99285; J0360; J0456; J0696; J1650; J2001; J2370; J2405; J2930; J3475; J7030; J7512; J7605

== ENCOUNTER 2018-07-18 04:41 | Emergency (ER) | payer OTHER ==
[2018-07-18 05:26] LABS: Absolute Monocytes 0.5 K/uL (0.1-1.3); Absolute Neutrophil 12.9 K/uL (1.8-8.0); Basophils % 0.6 % (0-1.3); Eosinophils % 0.2 % (0-4.4); Hematocrit 42.2 % (36.0-45.0); MCV 90.9 fL (80-100); MPV 7.3 fL (7.6-11.3); Monocytes % 3.1 % (3.3-12.3); RBC Red Blood Cell Count 4.64 M/uL (3.86-4.86)
[2018-07-18] MEDS ORDERED: SUCRALFATE 1GM/10ML UCUP ONE (05:29)
[2018-07-18 05:42] LABS: Albumin 3.4 g/dL (3.4-5.0); Bilirubin Direct 0.1 mg/dL (0-0.2); Bilirubin Total 0.3 mg/dL (0.2-1.0); Potassium 4.5 mmol/L (3.5-5.1); Protein, Total 7.4 g/dL (6.4-8.2)
--- NOTE | 2018-07-18 07:05 | EKG ---
Test Date: 2018-07-18 Test Time: 04:45:45 Cnc Service Technician: CANDY MEASUREMENT RESULTS: Intervals: Rate: 80 AK: 134 QRSD: 86 QT: 386 QTc: 445 [place]: P: 44 AK: 134 QRS: 14 T: 47 INTERPRETIVE STATEMENTS: Sinus rhythm with occasional and consecutive premature ventricular complexes Abnormal ECG Compared to ECG 07/07/2018 11:49:15 Ventricular premature complex(es) now present ST (T wave) deviation no longer present Electronically Signed On 07-18-18 07:05:12 CDT by Didier Arshad
--- NOTE | 2018-07-18 07:39 | EDPHYS ---
Physician Documentation [facility] Name: Allyn Echeverria Age: 72 yrs Sex: Female : 1945 Arrival Date: 07/18/2018 Time: 04:42 Bed 6 Private MD: ED Physician Fitz Mayen HPI: 07/18 06:48 This 72 yrs old Female presents to ER via EMS with complaints of Chest Pain,. 06:48 The patient or guardian reports chest pain that is located primarily in the epigastric gs area. Onset: gradually. The pain radiates to back. Associated signs and symptoms: Pertinent positives: abdominal pain. The chest pain is described as burning, sharp. Duration: The patient or guardian reports a single episode, that is still ongoing, but improving. Modifying factors: The symptoms are alleviated by antacids, the symptoms are aggravated by nothing. Severity of pain: At its worst the pain was severe in the emergency department the pain has improved markedly. The patient has experienced similar episodes in the past, several times, but today's symptoms are worse, started like previous gerd episodes. Historical: - Allergies: 04:56 Ciprofloxacin; tl2 04:56 Crestor; tl2 04:56 Iodine (Anaphylaxis); tl2 04:56 Magnevist; tl2 04:56 Sulfa (Sulfonamide Antibiotics); tl2 - Home Meds: 04:56 ipratropium bromide 0.02 % inhalation soln 2.5 mL 3-4 times daily [Active]; tl2 levothyroxine 100 mcg tab 1 tab once daily [Active]; ibuprofen 200 mg Oral cap 1 cap every 4 hours [Active]; amlodipine 5 mg tab 1 tab once daily [Active]; losartan 50 mg oral tab 1 tab once daily [Active]; Ventolin HFA 90 mcg/actuation Nebulizer HFAA 2 puffs every 4 hours [Active]; ergocalciferol (vitamin D2) miscellaneous powd [Active]; omeprazole 20 mg Oral cpDR 1 cap once daily [Active]; magnesium oxide 500 mg Oral cap [Active]; - PMHx: 04:56 COPD; Hyperlipidemia; Hypertension; lung cancer; tl2 - Immunization history:: Adult Immunizations up to date. - Social history:: Smoking status: Patient uses tobacco products, smokes one pack cigarettes per day. - Ebola Screening: : No symptoms or risks identified at this time. ROS: 06:48 All other systems are negative. gs Exam: 06:48 Head/Face: Normocephalic, atraumatic. Eyes: Pupils equal round and reactive to light, gs extra-ocular motions intact. Lids and lashes normal. Conjunctiva and sclera are non-icteric and not injected. Cornea within normal limits. Periorbital areas with no swelling, redness, or edema. ENT: Nares patent. No nasal discharge, no septal abnormalities noted. Tympanic membranes are normal and external auditory canals are clear. Oropharynx with no redness, swelling, or masses, exudates, or evidence of obstruction, uvula midline. Mucous membranes moist. Neck: Trachea midline, no thyromegaly or masses palpated, and no cervical lymphadenopathy. Supple, full range of motion without nuchal rigidity, or vertebral point tenderness. No Meningismus. Chest/axilla: Normal chest wall appearance and motion. Nontender with no deformity. No lesions are appreciated. Cardiovascular: Regular rate and rhythm with a normal S1 and S2. No gallops, murmurs, or rubs. Normal PMI, no JVD. No pulse deficits. Respiratory: Lungs have equal breath sounds bilaterally, clear to auscultation and percussion. No rales, rhonchi or wheezes noted. No increased work of breathing, no retractions or nasal flaring. Abdomen/GI: Soft, non-tender, with normal bowel sounds. No distension or tympany. No guarding or rebound. No evidence of tenderness throughout. Back: No spinal tenderness. No costovertebral tenderness. Full range of motion. Skin: Warm, dry with normal turgor. Normal color with no rashes, no lesions, and no evidence of cellulitis. MS/ Extremity: Pulses equal, no cyanosis. Neurovascular intact. Full, normal range of motion. Neuro: Awake and alert, GCS 15, oriented to person, place, time, and situation. Cranial nerves II-XII grossly intact. Motor strength 5/5 in all extremities. Sensory grossly intact. Cerebellar exam normal. Normal gait. 06:48 Constitutional: The patient appears in no acute distress, alert, awake. 06:48 ECG was reviewed by the Attending Physician. Vital Signs: 04:56 BP 119 / 69; Pulse 72; Resp 20; Temp 97.9(O); Pulse Ox 98% on R/A; Weight 81.19 kg; tl2 Height 5 ft. 4 in. (162.56 cm); Pain 4/10; 06:12 BP 130 / 79; Pulse 64; Resp 17; Pulse Ox 98% on R/A; tl2 07:30 BP 122 / 76; Pulse 67; Resp 18; Temp 98.0; Pulse Ox 97% on R/A; ph 04:56 Body Mass Index 30.72 (81.19 kg, 162.56 cm) tl2 MDM: 05:12 Patient medically screened. gs 06:48 Differential diagnosis: acute myocardial infarction, coronary artery disease gs gastroesophageal reflux disease (GERD), peptic ulcer disease, thoracic aortic disection. Data reviewed: vital signs, nurses notes. 06:48 Response to treatment: the patient's symptoms have markedly improved after treatment, gs the patient's symptoms have resolved after treatment, the patient's pain is gone, and as a result, I will discharge patient. 07/18 05:13 Order name: Basic Metabolic Panel; Complete Time: 05:53 07/18 05:13 Order name: CBC with Diff; Complete Time: 05:53 07/18 05:13 Order name: LFT's; Complete Time: 05:53 07/18 05:13 Order name: Troponin (emerg Dept Use Only); Complete Time: 05:53 07/18 05:13 Order name: Lipase; Complete Time: 05:53 07/18 06:13 Order name: Troponin (emerg Dept Use Only); Complete Time: 07:36 07/18 05:13 Order name: XRAY Chest (1 view) 07/18 05:13 Order name: EKG; Complete Time: 05:14 07/18 05:13 Order name: Cardiac monitoring; Complete Time: 05:15 07/18 05:13 Order name: EKG - Nurse/Tech; Complete Time: 05:15 07/18 05:13 Order name: IV Saline Lock; Complete Time: 05:15 07/18 06:37 Order name: Chest Abd Pelvis Wo Con EDMS 07/18 05:13 Order name: Labs collected and sent; Complete Time: 05:15 07/18 05:13 Order name: O2 Per Protocol; Complete Time: 05:15 08/24 05:13 Order name: O2 Sat Monitoring; Complete Time: 05:15 gs EC:48 Rate is 80 beats/min. Rhythm is regular. WI interval is normal. QRS interval is normal. gs T waves are Flattened. No ST changes noted. Clinical impression: NSR w/ Non-specific ST/T Changes. Administered Medications: 05:34 Drug: CarafATE 1 grams Route: PO; tl2 08:14 Follow up: Response: No adverse reaction ph Disposition: 07/18/18 07:38 Discharged to Home. Impression: Chest pain, unspecified, Epigastric pain. - Condition is Stable. - Discharge Instructions: Abdominal Pain, Adult, Nonspecific Chest Pain. - Medication Reconciliation Form, Thank You Letter, Antibiotic Education, Prescription Opioid Use form. - Follow up: Private Physician; When: 2 - 3 days; Reason: Re-evaluation by your physician. Signatures: Dispatcher [employer] [facility] Katherine Salter RN RN Mary Elliott RN RN tl2 Fitz Mayen MD MD Corrections: (The following items were deleted from the chart) 06:37 06:13 Angio Aorta For Dissection+CT.RAD.BRZ ordered. [facility]OK 08:14 07:38 07/18/2018 07:38 Discharged to Home. Impression: Chest pain, unspecified; ph Epigastric pain. Condition is Stable. Forms are Medication Reconciliation Form, Thank You Letter, Antibiotic Education, Prescription Opioid Use. Follow up: Private Physician; When: 2 - 3 days; Reason: Re-evaluation by your physician.
--- NOTE | 2018-07-18 07:39 | ER ---
Nurse's Notes [facility] Name: Allyn Echeverria Age: 72 yrs Sex: Female : 1945 Arrival Date: 07/18/2018 Time: 04:42 Bed 6 Private MD: Diagnosis: Chest pain, unspecified;Epigastric pain Presentation: 07/18 04:48 Presenting complaint: EMS states: Pt c/o chest pain (epigastric), shortness of breath tl2 and nausea. Pt reports pain goes straight through to her back. 12.5 mg phenergan administered per EMS. Transition of care: patient was not received from another setting of care. Onset of symptoms was July 18, 2018 at 03:00. Risk Assessment: Do you want to hurt yourself or someone else? Patient reports no desire to harm self or others. Initial Sepsis Screen: Does the patient meet any 2 criteria? No. Patient's initial sepsis screen is negative. Does the patient have a suspected source of infection? No. Patient's initial sepsis screen is negative. Care prior to arrival: Medication(s) given: Phenergan, 12.5 mg, IV initiated. 20 GA, in the left antecubital area. 04:48 Method Of Arrival: EMS: [facility] tl2 04:48 Acuity: KANDY 3 tl2 Triage Assessment: 04:56 General: Appears in no apparent distress. uncomfortable, Behavior is calm, cooperative, tl2 appropriate for age. Pain: Complains of pain in epigastric area Pain radiates to back Pain currently is 4 out of 10 on a pain scale. Neuro: Level of Consciousness is awake, alert, obeys commands, Oriented to person, place, time, situation. Cardiovascular: Chest pain is described as diffuse, quality is sharp, is located in epigastric area radiates back. Respiratory: Reports shortness of breath Airway is patent Respiratory effort is even, unlabored, Respiratory pattern is regular, symmetrical. GI: Reports nausea. : No signs and/or symptoms were reported regarding the genitourinary system. Derm: Skin is pink, warm \T\ dry. Historical: - Allergies: 04:56 Ciprofloxacin; tl2 04:56 Crestor; tl2 04:56 Iodine (Anaphylaxis); tl2 04:56 Magnevist; tl2 04:56 Sulfa (Sulfonamide Antibiotics); tl2 - Home Meds: 04:56 ipratropium bromide 0.02 % inhalation soln 2.5 mL 3-4 times daily [Active]; tl2 levothyroxine 100 mcg tab 1 tab once daily [Active]; ibuprofen 200 mg Oral cap 1 cap every 4 hours [Active]; amlodipine 5 mg tab 1 tab once daily [Active]; losartan 50 mg oral tab 1 tab once daily [Active]; Ventolin HFA 90 mcg/actuation Nebulizer HFAA 2 puffs every 4 hours [Active]; ergocalciferol (vitamin D2) miscellaneous powd [Active]; omeprazole 20 mg Oral cpDR 1 cap once daily [Active]; magnesium oxide 500 mg Oral cap [Active]; - PMHx: 04:56 COPD; Hyperlipidemia; Hypertension; lung cancer; tl2 - Immunization history:: Adult Immunizations up to date. - Social history:: Smoking status: Patient uses tobacco products, smokes one pack cigarettes per day. - Ebola Screening: : No symptoms or risks identified at this time. Screenin:58 Abuse screen: Denies threats or abuse. Nutritional screening: No deficits noted. tl2 Tuberculosis screening: No symptoms or risk factors identified. Fall Risk Gait- Weak (10 pts.). Assessment: 05:21 Pain: Pain began 4 hours ago. tl2 06:12 Reassessment: Patient appears in no apparent distress at this time. Patient and/or tl2 family updated on plan of care and expected duration. Pain level reassessed. Patient is alert, oriented x 3, equal unlabored respirations, skin warm/dry/pink. Pt states the epigastric pain has improved Patient states feeling better. 07:15 Reassessment: Patient appears in no apparent distress at this time. Patient and/or ph family updated on plan of care and expected duration. Pain level reassessed. Patient is alert, oriented x 3, equal unlabored respirations, skin warm/dry/pink. PT resting quietly, awaiting results of rep[eat cardiac enzymes, VSS, will continue to monitor. 08:05 Reassessment: Patient appears in no apparent distress at this time. Patient and/or ph family updated on plan of care and expected duration. Pain level reassessed. Patient is alert, oriented x 3, equal unlabored respirations, skin warm/dry/pink. Pt d/c home w/ copy of lab results. Vital Signs: 04:56 BP 119 / 69; Pulse 72; Resp 20; Temp 97.9(O); Pulse Ox 98% on R/A; Weight 81.19 kg; tl2 Height 5 ft. 4 in. (162.56 cm); Pain 4/10; 06:12 BP 130 / 79; Pulse 64; Resp 17; Pulse Ox 98% on R/A; tl2 07:30 BP 122 / 76; Pulse 67; Resp 18; Temp 98.0; Pulse Ox 97% on R/A; ph 04:56 Body Mass Index 30.72 (81.19 kg, 162.56 cm) tl2 ED Course: 04:42 Patient arrived in ED. ds1 04:48 Mary Elliott, RN is Primary Nurse. tl2 04:50 Triage completed. tl2 04:56 Arm band placed on right wrist. tl2 04:58 Patient has correct armband on for positive identification. Bed in low position. Call tl2 light in reach. Side rails up X2. Adult w/ patient. mmi teacher on. Pulse ox on. NIBP on. 04:58 Maintain EMS IV. Dressing intact. Site clean \T\ dry. Gauge \T\ site: 20 g L AC. tl 2 04:58 Oxygen administration via nasal cannula \T\ 2L/min. tl2 04:59 Fitz Mayen MD is Attending Physician. gs 05:39 X-ray completed. Portable x-ray completed in exam room. Patient tolerated procedure kw well. 05:40 XRAY Chest (1 view) In Process Unspecified. EDMS 06:[address] via stretcher. kw1 06:49 CT completed. Patient tolerated procedure well. Patient moved back from CT. kw1 06:49 Chest Abd Pelvis Wo Con In Process Unspecified. EDMS 07:40 No provider procedures requiring assistance completed. IV discontinued, intact, ph bleeding controlled, No redness/swelling at site. Pressure dressing applied. Administered Medications: 05:34 Drug: CarafATE 1 grams Route: PO; tl2 08:14 Follow up: Response: No adverse reaction ph Outcome: 07:38 Discharge ordered by . gs 08:14 Patient left the ED. ph Signatures: Dispatcher [employer] EDND Diana Norris ds1 Arlyn Ortega Patricia, RN RN ph Mary Elliott RN RN tl2 Fitz Mayen MD MD Manda Witt kw1
[2018-07-18 08:21] VITALS: BP 122/76; TEMP 98; O2SAT 97
--- NOTE | 2018-07-18 08:53 | RAD REPORT ---
EXAM DESCRIPTION: CT - Chest Abd Pelvis Wo Con - 07/18/2018 6:49 am CLINICAL HISTORY: Chest and abdominal pain with shortness of breath and nausea COMPARISON: July 07, 2018 CT chest TECHNIQUE: Computed axial tomography of the chest, abdomen and pelvis was obtained. Oral contrast wa s not given. IV contrast was not requested. A preliminary report was generated by [employer] and reviewed prior to this dictation All CT scans are performed using dose optimization technique as appropriate and may include automated exposure control or mA/KV adjustment according to patient size. FINDINGS: The evaluation of mediastinum, bowel, tito, vessels and solid organs is limited secondary to the lack of IV contrast administration A 6.8 centimeter right lower lobe mass is unchanged. The mass occludes a right lower lobe bronchus. I mprovement in right lower lobe postobstructive pneumonitis/atelectasis is noted. The left lung is clear. The small right pleural effusion has resolve. A pericardial effusion is not seen. Mild right hilar lymphadenopathy is suspected The liver, spleen, pancreas, left adrenal and left kidney appear grossly normal. A 2 millimeter nonobstructing right renal calculus is present. A 29 millimeter right adrenal mass is present. An additional 15 millimeter right adrenal mass is seen. There is no evidence of diverticulitis. The appendix is normal. Small umbilical hernia contains fat Spondylolysis involves L5 IMPRESSION: 6.8 centimeter right lower lobe mass is unchanged Two right adrenal masses may represent metastases or adenomas. Further evaluation with MRI could be o btained.
--- NOTE | 2018-07-18 08:57 | RAD REPORT ---
EXAM DESCRIPTION: Rick Single View07/18/2018 5:49 am CLINICAL HISTORY: Chest pain COMPARISON: July 09 FINDINGS: Right lower lobe mass is unchanged There has been improvement in right lower lobe opacities probably representing postobstructive pneumo nitis/ atelectasis Left lung is clear. The heart is normal size
== END 2018-07-18 08:14 | disposition home or self-care (01) ==
LOC: ER 04:41
DX: R07.9 Chest pain, unspecified (principal); R10.13 Epigastric pain; E78.5 Hyperlipidemia, unspecified; C34.90 Malignant neoplasm of unspecified part of unspecified bronchus or lung; F17.210 Nicotine dependence, cigarettes, uncomplicated; J44.9 Chronic obstructive pulmonary disease, unspecified; Z88.2 Allergy status to sulfonamides; Z88.8 Allergy status to other drugs, medicaments and biological substances; Z88.1 Allergy status to other antibiotic agents; Z91.041 Radiographic dye allergy status; I10 Essential (primary) hypertension
CPT/HCPCS: 36415; 71045; 71250; 74176; 80048; 80076; 83690; 84484; 85025; 93005; 99285

== ENCOUNTER 2018-07-23 17:19 | Observation (INO) | payer OTHER ==
[2018-07-23] MEDS ORDERED: DEXAMETHASONE 4 MG/ML VIAL ONE (17:57)
[2018-07-23] MEDS ORDERED: NA CHLORIDE 0.9% 100 ML IV ONE (17:57)
[2018-07-23] MEDS ORDERED: NA CHLORIDE 0.9% 1,000 ML ONE (17:58)
--- NOTE | 2018-07-23 18:22 | EDPHYS ---
Physician Documentation [facility] Name: Allyn Echeverria Age: 73 yrs Sex: Female : 1945 Arrival Date: 07/23/2018 Time: 17:24 Bed 7 Private MD: Andrea Pizarro ED Physician Mono Heard HPI: 07/23 17:50 This 73 yrs old Female presents to ER via Ambulatory with complaints of rn Abnormal Lab Results. 17:50 The patient complains of pain to the right base of the skull. Onset: The rn symptoms/episode began/occurred "months ago". Severity of symptoms: At its worst the pain was moderate, in the emergency department the pain has improved. The patient has experienced similar episodes in the past. Sent here by her oncologist, recent diagnosis of small cell lung cancer, today had MRI for staging, shows cerebellar mass with some edema, told to come here for treatment. I spoke with Dr. Pizarro, who requested admission to this hospital for radiation and steroids. No acute changes in neurological symptoms or mental status.. Historical: - Allergies: 17:35 Ciprofloxacin; aj 17:35 Crestor; aj 17:35 Iodine (Anaphylaxis); aj 17:35 Magnevist; aj 17:35 Sulfa (Sulfonamide Antibiotics); aj - Home Meds: 17:35 amlodipine 5 mg tab 1 tab once daily [Active]; ergocalciferol (vitamin D2) aj miscellaneous powd [Active]; ibuprofen 200 mg Oral cap 1 cap every 4 hours [Active]; ipratropium bromide 0.02 % inhalation soln 2.5 mL 3-4 times daily [Active]; levothyroxine 100 mcg tab 1 tab once daily [Active]; losartan 50 mg Oral tab 1 tab once daily [Active]; magnesium oxide 500 mg Oral cap [Active]; omeprazole 20 mg Oral cpDR 1 cap once daily [Active]; Ventolin HFA 90 mcg/actuation Nebulizer HFAA 2 puffs every 4 hours [Active]; - PMHx: 17:35 COPD; Hyperlipidemia; Hypertension; Lung Cancer; aj - Immunization history:: Adult Immunizations up to date. - Social history:: Smoking status: Patient uses tobacco products, smokes one pack cigarettes per day. - Ebola Screening: : Patient negative for fever greater than or equal to 101.5 degrees Fahrenheit, and additional compatible Ebola Virus Disease symptoms Patient denies exposure to infectious person Patient denies travel to an Ebola-affected area in the 21 days before illness onset No symptoms or risks identified at this time. - Family history:: not pertinent. - Hospitalizations: : No recent hospitalization is reported. ROS: 17:50 Constitutional: Negative for fever, chills Eyes: Negative for injury, pain, redness, rn and discharge, Neck: Negative for injury, pain, and swelling, Cardiovascular: Negative for chest pain, palpitations, and edema, Respiratory: Negative for shortness of breath, cough, wheezing, and pleuritic chest pain, Abdomen/GI: Negative for abdominal pain, nausea, vomiting, diarrhea, and constipation, MS/Extremity: Negative for injury and deformity, Skin: Negative for injury, rash, and discoloration, Neuro: + headache and unsteady gait Exam: 17:50 Constitutional: This is a well developed, well nourished patient who is awake, alert, rn and in no acute distress. Head/Face: Normocephalic, atraumatic. ENT: MMM Neck: Trachea midline, no thyromegaly or masses palpated, and no cervical lymphadenopathy. Supple, full range of motion without nuchal rigidity, or vertebral point tenderness. No Meningismus. Cardiovascular: tachycardic, regular, no murmur Skin: Warm, dry with normal turgor. Normal color with no rashes, no lesions, and no evidence of cellulitis. MS/ Extremity: Pulses equal, no cyanosis. Neurovascular intact. Full, normal range of motion. Equal circumference. Neuro: Awake and alert, GCS 15, oriented to person, place, time, and situation. Cranial nerves II-XII grossly intact. Motor strength 5/5 in all extremities. Sensory grossly intact. Normal finger to nose, + mildly unsteady gait Vital Signs: 17:35 BP 119 / 70; Pulse 106; Resp 20; Temp 97.8; Pulse Ox 96% on R/A; Weight 81.19 kg; aj Height 5 ft. 4 in. (162.56 cm); 18:22 BP 112 / 68; Pulse 88; Resp 18; Pulse Ox 95% on R/A; jl7 19:30 BP 100 / 61; Pulse 82; Resp 16 S; Pulse Ox 94% on R/A; jd3 20:20 BP 115 / 61; Pulse 83; Resp 16 S; Pulse Ox 94% on R/A; jd3 17:35 Body Mass Index 30.72 (81.19 kg, 162.56 cm) aj Alejandro Coma Score: 18:19 Eye Response: spontaneous(4). Verbal Response: oriented(5). Motor Response: obeys rn commands(6). Total: 15. MDM: 17:38 Patient medically screened. rn 18:19 Differential diagnosis: cerebellar mass. Data reviewed: vital signs, nurses notes, supervisor laboratory animal facility test result(s), radiologic studies, MRI, and as a result, I will admit patient. Counseling: I had a detailed discussion with the patient and/or guardian regarding: the historical points, exam findings, and any diagnostic results supporting the discharge/admit diagnosis, lab results, radiology results, the need for further work-up and treatment in the hospital. Response to treatment: There is no appreciated change of the patient's symptoms at this time. ED course: Admitted to [facility] for evaluation and consultation of Dr. Pizarro for radiation, steroids given. . 07/23 17:47 Order name: CBC with Diff rn 07/23 17:47 Order name: Basic Metabolic Panel rn 07/23 17:47 Order name: Protime (+inr) rn 07/23 17:47 Order name: Ptt, Activated rn 07/23 17:47 Order name: IV Start; Complete Time: 18:18 rn Administered Medications: 18:05 Drug: NS 0.9% 1000 ml Route: IV; Rate: 125 ml/hr; Site: left hand; [facility] 20:22 Follow up: IV Status: Infusion continued upon admission jd3 18:15 Drug: Decadron - Dexamethasone 10 mg Route: IVP; Site: left hand; 7 19:09 Follow up: Response: No adverse reaction jl7 19:19 Drug: GI Cocktail without - (Maalox Suspension 30 ml, Lidocaine Liquid 2 % 15 jd3 ml) Route: PO; 20:22 Follow up: Response: No adverse reaction jd3 Disposition: 07/23/18 18:21 Hospitalization ordered by [facility]kins for Inpatient Admission. Preliminary diagnosis are Cerebellar mass, Ataxia, unspecified. - Bed requested for Telemetry/MedSurg (Inpatient). - Status is Inpatient Admission. jd3 - Condition is Stable. - Problem is an ongoing problem. - Symptoms are unchanged. UTI on Admission? No Signatures: Dispatcher [employer] EDMS Spring Moody RN Keely Huitron RN Mono Alves MD MD rn Leal, Jahala, RN RN jl7 Antonio Prescott RN RN jd3 Corrections: (The following items were deleted from the chart) 19:56 18:21 Hospitalization Ordered by Suzette Akins MD for Inpatient Admission. Preliminary diagnosis is Cerebellar mass; Ataxia, unspecified. Bed requested for Telemetry/MedSurg (Inpatient). Status is Inpatient Admission. Condition is Stable. Problem is an ongoing problem. Symptoms are unchanged. UTI on Admission? No. rn 20:40 19:56 07/23/2018 18:21 Hospitalization Ordered by Suzette Akins MD for Inpatient jd3 Admission. Preliminary diagnosis is Cerebellar mass; Ataxia, unspecified. Bed requested for Telemetry/MedSurg (Inpatient). Status is Inpatient Admission. Condition is Stable. Problem is an ongoing problem. Symptoms are unchanged. UTI on Admission? No. mw
--- NOTE | 2018-07-23 18:22 | ER ---
Nurse's Notes [facility] Name: Allyn Echeverria Age: 73 yrs Sex: Female : 1945 Arrival Date: 07/23/2018 Time: 17:24 Bed 7 Private MD: Andrea Pizarro Diagnosis: Cerebellar mass;Ataxia, unspecified Presentation: 07/23 17:33 Presenting complaint: Patient states: Instructed to come to ER by Radiation Oncologist aj after MRI. Transition of care: patient was not received from another setting of care. Onset of symptoms was July 23, 2018. Risk Assessment: Do you want to hurt yourself or someone else? Patient reports no desire to harm self or others. Initial Sepsis Screen: Does the patient meet any 2 criteria? No. Patient's initial sepsis screen is negative. Does the patient have a suspected source of infection? No. Patient's initial sepsis screen is negative. Care prior to arrival: None. 17:33 Method Of Arrival: Ambulatory aj 17:33 Acuity: KANDY 3 aj Triage Assessment: 17:35 General: Appears in no apparent distress. comfortable, Behavior is calm, cooperative, aj appropriate for age. Pain: Complains of pain in face and scalp. Neuro: Level of Consciousness is awake, alert, obeys commands, Oriented to person, place, time, situation, Appropriate for age. Respiratory: Airway is patent Respiratory effort is even, unlabored, Respiratory pattern is regular, symmetrical. Derm: Skin is intact, is healthy with good turgor, Skin is pink, warm \T\ dry. normal. Historical: - Allergies: 17:35 Ciprofloxacin; aj 17:35 Crestor; aj 17:35 Iodine (Anaphylaxis); aj 17:35 Magnevist; aj 17:35 Sulfa (Sulfonamide Antibiotics); aj - Home Meds: 17:35 amlodipine 5 mg tab 1 tab once daily [Active]; ergocalciferol (vitamin D2) aj miscellaneous powd [Active]; ibuprofen 200 mg Oral cap 1 cap every 4 hours [Active]; ipratropium bromide 0.02 % inhalation soln 2.5 mL 3-4 times daily [Active]; levothyroxine 100 mcg tab 1 tab once daily [Active]; losartan 50 mg Oral tab 1 tab once daily [Active]; magnesium oxide 500 mg Oral cap [Active]; omeprazole 20 mg Oral cpDR 1 cap once daily [Active]; Ventolin HFA 90 mcg/actuation Nebulizer HFAA 2 puffs every 4 hours [Active]; - PMHx: 17:35 COPD; Hyperlipidemia; Hypertension; Lung Cancer; aj - Immunization history:: Adult Immunizations up to date. - Social history:: Smoking status: Patient uses tobacco products, smokes one pack cigarettes per day. - Ebola Screening: : Patient negative for fever greater than or equal to 101.5 degrees Fahrenheit, and additional compatible Ebola Virus Disease symptoms Patient denies exposure to infectious person Patient denies travel to an Ebola-affected area in the 21 days before illness onset No symptoms or risks identified at this time. - Family history:: not pertinent. - Hospitalizations: : No recent hospitalization is reported. Screenin:54 Abuse screen: Denies threats or abuse. Denies injuries from another. Nutritional sv screening: No deficits noted. Tuberculosis screening: No symptoms or risk factors identified. Fall Risk None identified. Assessment: 17:45 General: Appears in no apparent distress. uncomfortable, Behavior is calm, cooperative, jl7 appropriate for age. Neuro: Level of Consciousness is awake, alert, obeys commands, Oriented to person, place, time, situation, Reports dizziness. Cardiovascular: Patient's skin is warm and dry. Respiratory: Airway is patent Respiratory effort is even, unlabored, Respiratory pattern is regular, symmetrical. GI: No signs and/or symptoms were reported involving the gastrointestinal system. : No signs and/or symptoms were reported regarding the genitourinary system. EENT: No signs and/or symptoms were reported regarding the EENT system. Derm: Skin is pink, warm \T\ dry. Musculoskeletal: No signs and/or symptoms reported regarding the musculoskeletal system. 19:15 Reassessment: Patient appears in no apparent distress at this time. No changes from jd3 previously documented assessment. Patient and/or family updated on plan of care and expected duration. Pain level reassessed. Patient is alert, oriented x 3, equal unlabored respirations, skin warm/dry/pink. Vital Signs: 17:35 BP 119 / 70; Pulse 106; Resp 20; Temp 97.8; Pulse Ox 96% on R/A; Weight 81.19 kg; aj Height 5 ft. 4 in. (162.56 cm); 18:22 BP 112 / 68; Pulse 88; Resp 18; Pulse Ox 95% on R/A; jl7 19:30 BP 100 / 61; Pulse 82; Resp 16 S; Pulse Ox 94% on R/A; jd3 20:20 BP 115 / 61; Pulse 83; Resp 16 S; Pulse Ox 94% on R/A; jd3 17:35 Body Mass Index 30.72 (81.19 kg, 162.56 cm) aj Alejandro Coma Score: 18:19 Eye Response: spontaneous(4). Verbal Response: oriented(5). Motor Response: obeys rn commands(6). Total: 15. ED Course: 17:24 Patient arrived in ED. es 17:25 Andrea Pizarro MD is Private Physician. es 17:34 Triage completed. aj 17:35 Arm band placed on left wrist. Patient placed in an exam room. aj 17:38 Mayo Lara RN is Primary Nurse. jl7 17:38 Mono Heard MD is Attending Physician. rn 17:54 Patient has correct armband on for positive identification. Placed in gown. Bed in low sv position. Adult w/ patient. 18:21 Suzette Akins MD is Hospitalizing Provider. rn 18:22 Pulse ox on. NIBP on. jl7 18:22 Initial lab(s) drawn, by ne, sent to lab. Inserted saline lock: 20 gauge in left hand, jl7 using aseptic technique. Blood collected. 20:36 No provider procedures requiring assistance completed. Patient admitted, IV remains in jd3 place. Administered Medications: 18:05 Drug: NS 0.9% 1000 ml Route: IV; Rate: 125 ml/hr; Site: left hand; jl7 20:22 Follow up: IV Status: Infusion continued upon admission jd3 18:15 Drug: Decadron - Dexamethasone 10 mg Route: IVP; Site: left hand; jl7 19:09 Follow up: Response: No adverse reaction jl7 19:19 Drug: GI Cocktail without - (Maalox Suspension 30 ml, Lidocaine Liquid 2 % 15 jd3 ml) Route: PO; 20:22 Follow up: Response: No adverse reaction jd3 Outcome: 18:21 Decision to Hospitalize by Provider. rn 20:36 Admitted to Med/surg accompanied by tech, via wheelchair, room 412, with chart, Report jd3 called to Brianna REYES 20:36 Condition: stable 20:36 Instructed on the need for admit, Demonstrated understanding of instructions. 20:40 Patient left the ED. jd3 Signatures: Jenny Osullivan, Keely Cano RN RN Coty Leal Roman, MD MD rn Leal, Jahala, RN RN jl7 Antonio Prescott RN RN jd3
[2018-07-23 18:28] LABS: Absolute Neutrophil 10.1 K/uL (1.8-8.0); Basophils % 1.2 % (0-1.3); Hematocrit 41.5 % (36.0-45.0); Lymphocytes % 25.8 % (15.3-44.8); MCV 90.2 fL (80-100); MPV 7.6 fL (7.6-11.3); Monocytes % 6.6 % (3.3-12.3)
[2018-07-23 18:32] LABS: Protime INR 1.14
[2018-07-23 19:00] LABS: Potassium 4.2 mmol/L (3.5-5.1)
[2018-07-23] MEDS ORDERED: LIDOCAINE VISCOUS 2% SOLN 15 ML UDC ONE (19:17)
[2018-07-23] MEDS ORDERED: MAGNES/ALUMIN/SIMET 30ML UCUP ONE (19:18)
[2018-07-23] MEDS ORDERED: SODIUM CHLORIDE 0.9% 10ML INJ IV PRN (20:09)
[2018-07-23] MEDS ORDERED: ONDANSETRON 4 MG/2 ML VIAL IV PRN (20:09)
[2018-07-23] MEDS ORDERED: INSULIN -REGULAR HUMAN 50 UNIT/0.5 ML ML SQ SCH (21:00)
[2018-07-23 22:07] VITALS: BMI 30.9
[2018-07-23] MEDS: PANTOPRAZOLE 40 MG INJ IVP SCH (22:55)
[2018-07-24] MEDS ORDERED: DEXAMETHASONE 10 MG/ML VIAL IV SCH
[2018-07-24] MEDS: DEXAMETHASONE 4 MG/ML VIAL IV SCH ×2 (05:42)
[2018-07-24] MEDS ORDERED: INSULIN -REGULAR HUMAN 50 UNIT/0.5 ML ML SQ SCH (06:00)
[2018-07-24 06:06] LABS: Absolute Lymphocytes (CBC) 1.3 K/uL (0.7-4.9); Absolute Monocytes 0.1 K/uL (0.1-1.3); Absolute Neutrophil 9.3 K/uL (1.8-8.0); Basophils % 0.3 % (0-1.3); Hematocrit 41.7 % (36.0-45.0); Lymphocytes % 11.7 % (15.3-44.8); MCH 31.8 pg (27.0-35.0); MCV 91.5 fL (80-100); MPV 7.5 fL (7.6-11.3); Monocytes % 1.1 % (3.3-12.3); RBC Red Blood Cell Count 4.56 M/uL (3.86-4.86)
[2018-07-24 06:22] LABS: Albumin 3.4 g/dL (3.4-5.0); Bilirubin Total 0.3 mg/dL (0.2-1.0); Magnesium 1.9 mg/dL (1.8-2.4); Phosphorus 2.8 mg/dL (2.5-4.9); Potassium 5.1 mmol/L (3.5-5.1); Protein, Total 7.9 g/dL (6.4-8.2)
[2018-07-24 08:19] VITALS: BP 134/60; TEMP 97
--- NOTE | 2018-07-24 08:19 | P.HP ---
Certification for Inpatient Patient admitted to: Observation With expected LOS: <2 Midnights Patient will require the following post-hospital care: None Practitioner: I am a practitioner with admitting privileges, knowledge of patient current condition, hospital course, and medical plan of care. Services: Services provided to patient in accordance with Admission requirements found in Title 42 Section 412.3 of the Code of Federal Regulations Patient History Date of Service: 07/23/18 Reason for admission: CEREBELLAR MASS WITH MASS EFFECT History of Present Illness: PATIENT IS A 73-YEAR-OLD FEMALE CAME TO THE HOSPITAL WITH A CEREBELLAR LESION. PATIENT HAD A CEREBELLAR MASS WITH MASS EFFECT. PATIENT WAS SEEN BY A RADIATION ONCOLOGIST AND HER ONCOLOGIST. SHE WAS SENT TO THE EMERGENCY ROOM. DECISION WAS MADE TO ADMIT HER TO THE HOSPITAL FOR OBSERVATION. SHE HAS BEEN HAVING SOME VERTIGO FOR THE LAST FEW DAYS. THIS HAS GOTTEN PROGRESSIVELY WORSE. SHE WAS RECENTLY DIAGNOSED WITH SMALL-CELL LUNG CANCER. SHE HAD A BRONCHOSCOPY DONE ABOUT A WEEK AND HALF AGO AFTER A LUNG MASS WAS FOUND. SHE ALSO HAS LIVER MASS. THE BRAIN MASS WAS FOUND AFTER A MRI WITHOUT CONTRAST WAS PERFORMED. SHE HAS ALLERGIES TO GADOLINIUM. THERE IS ALSO A QUESTIONABLE ALLERGY TO IODINE. THAT IS WHY THE MRI WAS DONE WITHOUT CONTRAST. AT THIS TIME PATIENT WILL BE ADMITTED FOR IV DECADRON. SHE WILL GET RADIATION IN THE MORNING. Allergies ciprofloxacin [From Cipro] Allergy (Verified 09/22/14 21:42) Rash ciprofloxacin HCl [From Cipro] Allergy (Verified 09/22/14 21:42) Rash gadopentetic acid [From Magnevist] Allergy (Verified 07/23/18 23:59) Unknown iodine Allergy (Verified 07/23/18 23:59) Unknown rosuvastatin calcium [From Crestor] Allergy (Verified 09/22/14 21:42) TENDONITIS Sulfa (Sulfonamide Antibiotics) Allergy (Verified 09/22/14 21:42) Anaphylaxis MRI CONTRAST Allergy (Uncoded 09/22/14 21:42) Anaphylaxis Home Medications: Albuterol Inhaler [Ventolin Inhaler*] 2 puff IH BID 6AM 6PM 07/07/18 Ergocalciferol (Vitamin D2) [Vitamin D2] 2,000 iu PO DAILY 07/07/18 Levothyroxine Sodium 100 mcg PO DAILY 07/07/18 Magnesium Oxide [Magnesium] 500 mg PO DAILY 07/07/18 Amlodipine [Norvasc*] 5 mg PO DAILY #30 tab 07/09/18 Dexamethasone 4 mg PO Q6H #50 tablet 07/24/18 Ipratropium Neb [Atrovent*] 0.5 mg NEB Q4HP PRN 07/24/18 Pantoprazole [Protonix Tab] 40 mg PO BID #60 tab 07/24/18 Umeclidinium Brm/Vilanterol Tr [Anoro Ellipta 62.5-25 Mcg INH] 1 puff IH DAILY 07/24/18 - Past Medical/Surgical History Has patient received pneumonia vaccine in the past: Yes Diabetic: No -: GERD -: COPD -: HYPERLIPIDEMIA -: HYPOTHYROIDISM -: HTN -: HYPERLIPIDIMIA -: CHOLECYSTECTOMY -: HYSTERECTOMY -: TONSILLECTOMY - Family History Father Medical History: Heart disease, Stroke Mother Medical History: Heart disease, Stroke - Social History Smoking Status: Current every day smoker Alcohol use: No CD- Drugs: No Caffeine use: Yes Place of Residence: Home Review of Systems 10-point ROS is otherwise unremarkable Physical Examination - Vital Signs Temperature: 97 F Blood Pressure: 134/60 Pulse: 97 Respirations: 18 Pulse Ox (%): 96 - Physical Exam General: Alert, In no apparent distress, Oriented x3 HEENT: Atraumatic, PERRLA, Mucous membr. moist/pink, EOMI, Sclerae nonicteric Neck: Supple, 2+ carotid pulse no bruit, No LAD, Without JVD or thyroid abnormality Respiratory: Clear to auscultation bilaterally, Normal air movement Cardiovascular: Regular rate/rhythm, Normal S1 S2, No murmurs Gastrointestinal: Normal bowel sounds, Soft and benign, Non-distended, No tenderness Musculoskeletal: No clubbing, No swelling, No tenderness Integumentary: No rashes Neurological: Normal gait, Normal speech, Normal strength at 5/5 x4 extr, Normal tone, Sensation intact, Cranial nerves 3-12 intact, Normal affect Lymphatics: No axilla or inguinal lymphadenopathy - Studies Laboratory Data (last 24 hrs) 07/23/18 18:00: PT 13.5 H, INR 1.14, APTT 31.2 07/23/18 18:00: Sodium 139, Potassium 4.2, BUN 17, Creatinine 1.20, Glucose 163 H 07/23/18 18:00: WBC 15.4 H, Hgb 14.3, Hct 41.5, Plt Count 418 H Assessment & Plan - Problems (Diagnosis) (1) Small cell lung cancer Current Visit: Yes Status: Acute (2) 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 IV STEROIDS 2. DISCUSS WITH ONCOLOGY AND RADIATION ONCOLOGY REGARDING PLAN OF CARE IN THE MORNING 3. SUPPORTIVE CARE 4. GENTLE HYDRATION 5. RADIATION IN A.M. 6. GI AND DVT PROPHYLAXIS Discharge Plan: Home Plan to discharge in: 24 Hours - Advance Directives Does patient have a Living Will: Yes Does patient have a Durable POA for Healthcare: Yes - Code Status/Comfort Care Code Status Assessed: Yes Code Status: Full Code Critical Care: No Time Spent Managing PTS Care (In Minutes): 50
--- NOTE | 2018-07-24 08:22 | P.DS ---
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 PATIENT HAD A CEREBELLAR MASS WITH MASS EFFECT. PATIENT WAS SEEN BY A RADIATION ONCOLOGIST AND HER ONCOLOGIST. SHE WAS SENT TO THE EMERGENCY ROOM. DECISION WAS MADE TO ADMIT HER TO THE HOSPITAL FOR OBSERVATION. SHE HAS BEEN HAVING SOME VERTIGO FOR THE LAST FEW DAYS. THIS HAS GOTTEN PROGRESSIVELY WORSE. SHE WAS RECENTLY DIAGNOSED WITH SMALL-CELL LUNG CANCER. SHE HAD A BRONCHOSCOPY DONE ABOUT A WEEK AND HALF AGO AFTER A LUNG MASS WAS FOUND. SHE ALSO HAS LIVER MASS. THE BRAIN MASS WAS FOUND AFTER A MRI WITHOUT CONTRAST WAS PERFORMED. SHE HAS ALLERGIES TO GADOLINIUM. THERE IS ALSO A QUESTIONABLE ALLERGY TO IODINE. THAT IS WHY THE MRI WAS DONE WITHOUT CONTRAST. AT THIS TIME PATIENT WILL BE ADMITTED FOR IV DECADRON. SHE WILL GET RADIATION IN THE MORNING. Hospital Course: Patient has done well during hospital stay. Patient is stable for discharge to radiation Oncology this morning. I spoke with Oncology and Radiation Oncology. They Wanna start whole brain radiation this morning. Go ahead and discharge her home. Vital Signs/Physical Exam: Temp Pulse Resp BP Pulse Ox 97 F 97 H 18 134/60 96 07/24/18 08:18 07/24/18 08:18 07/24/18 08:18 07/24/18 08:18 07/24/18 08:18 General: Alert, In no apparent distress, Oriented x3 Laboratory Data at Discharge: WBC 10.7 K/uL (4.3-10.9) D 07/24/18 05:30 Hgb 14.5 g/dL (12.0-15.0) 07/24/18 05:30 Hct 41.7 % (36.0-45.0) 07/24/18 05:30 Plt Count 413 K/uL (152-406) H 07/24/18 05:30 PT 13.5 SECONDS (9.5-12.5) H 07/23/18 18:00 INR 1.14 07/23/18 18:00 APTT 31.2 SECONDS (24.3-36.9) 07/23/18 18:00 Sodium 136 mmol/L (136-145) 07/24/18 05:30 Potassium 5.1 mmol/L (3.5-5.1) 07/24/18 05:30 BUN 24 mg/dL (7-18) H 07/24/18 05:30 Creatinine 1.00 mg/dL (0.55-1.3) 07/24/18 05:30 Glucose 285 mg/dL (74-106) H 07/24/18 05:30 Phosphorus 2.8 mg/dL (2.5-4.9) 07/24/18 05:30 Magnesium 1.9 mg/dL (1.8-2.4) 07/24/18 05:30 Total Bilirubin 0.3 mg/dL (0.2-1.0) 07/24/18 05:30 AST 12 U/L (15-37) L 07/24/18 05:30 ALT 20 U/L (12-78) 07/24/18 05:30 Alkaline Phosphatase 97 U/L (45-117) 07/24/18 05:30 Home Medications: Albuterol Inhaler [Ventolin Inhaler*] 2 puff IH BID 6AM 6PM 07/07/18 Ergocalciferol (Vitamin D2) [Vitamin D2] 2,000 iu PO DAILY 07/07/18 Levothyroxine Sodium 100 mcg PO DAILY 07/07/18 Magnesium Oxide [Magnesium] 500 mg PO DAILY 07/07/18 Amlodipine [Norvasc*] 5 mg PO DAILY #30 tab 07/09/18 Dexamethasone 4 mg PO Q6H #50 tablet 07/24/18 Ipratropium Neb [Atrovent*] 0.5 mg NEB Q4HP PRN 07/24/18 Pantoprazole [Protonix Tab] 40 mg PO BID #60 tab 07/24/18 Umeclidinium Brm/Vilanterol Tr [Anoro Ellipta 62.5-25 Mcg INH] 1 puff IH DAILY 07/24/18 New Medications: Dexamethasone 4 mg PO Q6H #50 tablet Pantoprazole [Protonix Tab] 40 mg PO BID #60 tab Patient Discharge Instructions: OK TO DC IV AND DC HOME. FOLLOW-UP WITH PRIMARY CARE PROVIDER IN 1-2 WEEKS. FOLLOW-UP WITH RADIATION ONCOLOGY IMMEDIATELY AFTER LEAVING THE HOSPITAL. FOLLOW WITH ONCOLOGY IN 1 WEEK. REFRAIN FROM NSAID USE WHILE ON DECADRON. RETURN TO THE ER IF symptoms worsen. CALL or TEXT DR. JOSEPH AT [phone] IF ANY QUESTIONS REGARDING HOSPITAL STAY. PLEASE CALL THE FLOOR AT [phone] IF ANY MEDICATION OR NURSING QUESTIONS. Diet: Regular Activity: Fall precautions Time spent managing pt's care (in minutes): 30
[2018-07-24] MEDS: PANTOPRAZOLE 40 MG INJ IVP SCH (08:30)
[2018-07-24] MEDS ORDERED: PANTOPRAZOLE 40MG TABLET PO ONE (08:30)
[2018-07-24 12:16] VITALS: O2SAT 96
== END 2018-07-24 08:15 | disposition home or self-care (01) ==
LOC: ER 17:19 → ERHOLD 18:25 → INTOOBSV 18:25 → 4TH 20:00
PROVIDERS: ADMIT Family Medicine; ATTEND Hospitalist
DX: R42 Dizziness and giddiness (principal); G93.6 Cerebral edema; C34.90 Malignant neoplasm of unspecified part of unspecified bronchus or lung; C78.7 Secondary malignant neoplasm of liver and intrahepatic bile duct; C79.31 Secondary malignant neoplasm of brain; K21.9 Gastro-esophageal reflux disease without esophagitis; E78.5 Hyperlipidemia, unspecified; E03.9 Hypothyroidism, unspecified; I10 Essential (primary) hypertension
CPT/HCPCS: 36415; 70551; 80048; 80053; 82962 ×2; 83735; 84100; 85025 ×2; 85610; 85730; 87070; 87205; 96361; 96374; 99285; C9113; G0378 ×2; J7030; 77290; 77334; 77412; J1100

== ENCOUNTER 2018-08-30 08:49 | Emergency (ER) | payer OTHER ==
[2018-08-30] MEDS ORDERED: ONDANSETRON 4 MG/2 ML VIAL ONE (10:12)
[2018-08-30] MEDS ORDERED: CEFTRIAXONE/SWI 1gm 1 GM/10 ML SYR ONE (10:12)
[2018-08-30] MEDS ORDERED: NA CHLORIDE 0.9% 500 ML ONE (10:12)
[2018-08-30 10:16] LABS: Urine Bacteria LOADED /HPF (<20); Urine Culture Reflex Order REFLEXED; Urine RBC <5 /HPF (NONE SEEN)
--- NOTE | 2018-08-30 11:14 | RAD REPORT ---
EXAM DESCRIPTION: USExtrem Venous W Compress Bil08/30/2018 11:05 am CLINICAL HISTORY: Bilateral leg swelling COMPARISON: 08/20/2018 FINDINGS: The common femoral, superficial femoral, popliteal and posterior tibial veins bilaterally are compressible and demonstrate augmentation. Doppler demonstrates good flow. IMPRESSION: No evidence of deep venous thrombosis involving either lower extremity.
--- NOTE | 2018-08-30 11:22 | EDPHYS ---
Physician Documentation [facility] Name: Allyn Echeverria Age: 73 yrs Sex: Female : 1945 Arrival Date: 08/30/2018 Time: 08:52 Bed 17 Private MD: ED Physician Mono Heard HPI: 08/30 11:16 This 73 yrs old Female presents to ER via Wheelchair with complaints of rn Urinary Problem, Feet Swelling. 11:16 The patient presents with urinary symptoms. Onset: The symptoms/episode began/occurred rn at an unknown time. Associated signs and symptoms: Pertinent positives: dysuria, nausea, urinary frequency. Severity of symptoms: At their worst the symptoms were mild, in the emergency department the symptoms are unchanged. The patient has experienced similar episodes in the past. Reports frequent UTI, chemo yesterday, feels identical to previous UTIs, no fever, no vomiting, just finished macrobid recently. . Historical: - Allergies: 09:10 Ciprofloxacin; hb 09:10 Crestor; hb 09:10 Iodine (Anaphylaxis); hb 09:10 Magnevist; hb 09:10 Sulfa (Sulfonamide Antibiotics); hb - PMHx: 09:10 COPD; Hypertension; Lung Cancer; Hyperlipidemia; hb - Immunization history:: Adult Immunizations up to date. - Social history:: Smoking status: Patient uses tobacco products, smokes one-half pack cigarettes per day. - Ebola Screening: : No symptoms or risks identified at this time. - Family history:: not pertinent. - Hospitalizations: : No recent hospitalization is reported. ROS: 11:16 Constitutional: Negative for fever, chills, and weight loss, Eyes: Negative for injury, rn pain, redness, and discharge, ENT: MMM Cardiovascular: Negative for chest pain, palpitations Respiratory: Negative for shortness of breath, cough, wheezing, and pleuritic chest pain, Abdomen/GI: Negative for abdominal pain, vomiting, diarrhea, and constipation, Back: Negative for injury and pain, : Negative for injury, bleeding, discharge, and swelling, MS/Extremity: Negative for injury and deformity, Skin: Negative for injury, rash, and discoloration, Neuro: Negative for headache, weakness, numbness, tingling, and seizure. Exam: 11:16 Constitutional: This is a well developed, well nourished patient who is awake, alert, rn and in no acute distress. Head/Face: Normocephalic, atraumatic. Eyes: Pupils equal round and reactive to light, extra-ocular motions intact. Lids and lashes normal. Conjunctiva and sclera are non-icteric and not injected. Cornea within normal limits. Periorbital areas with no swelling, redness, or edema. ENT: MMM Abdomen/GI: soft, non-tender Skin: Warm, dry, no evidence of cellulitis. MS/ Extremity: Pulses equal, no cyanosis. Neurovascular intact. Full, normal range of motion. Equal circumference. 1+ pedal edema Neuro: Awake and alert, GCS 15 Vital Signs: 09:08 BP 148 / 77; Pulse 77; Resp 16; Temp 98.7; Pulse Ox 96% on R/A; Weight 77.11 kg; Height hb 5 ft. 4 in. (162.56 cm); Pain 6/10; 10:00 BP 152 / 77; Pulse 85; Resp 20; Temp 98.2(O); Pulse Ox 97% on R/A; em 11:00 BP 142 / 72; Pulse 79; Resp 21; Pulse Ox 99% on R/A; em 09:08 Body Mass Index 29.18 (77.11 kg, 162.56 cm) hb MDM: 09:30 Patient medically screened. rn 11:16 Differential diagnosis: urinary tract infection. Data reviewed: vital signs, nurses rn notes, lab test result(s), radiologic studies, doppler, and as a result, I will discharge patient. Counseling: I had a detailed discussion with the patient and/or guardian regarding: the historical points, exam findings, and any diagnostic results supporting the discharge/admit diagnosis, lab results, radiology results, the need for outpatient follow up, to return to the emergency department if symptoms worsen or persist or if there are any questions or concerns that arise at home. Special discussion: I discussed with the patient/guardian in detail that at this point there is no indication for admission to the hospital. It is understood, however, that if the symptoms persist or worsen the patient needs to return immediately for re-evaluation. ED course: Checked last 2 cultures, sensitive to rocephin, will dc home with cefpodoxime given recent chemo, stable vitals. . 08/30 09:34 Order name: Urine Microscopic Only; Complete Time: 11:15 rn 10/06 09:34 Order name: Urine Culture rn 08/30 09:55 Order name: Urine Dipstick--Ancillary (enter results) eb 08/30 10:00 Order name: Extrem Venous W Compression Telly US; Complete Time: 11:15 rn 08/30 09:34 Order name: Urine Dipstick-Ancillary (obtain specimen); Complete Time: 09:46 rn 08/30 09:59 Order name: IV Start; Complete Time: 10:46 rn Administered Medications: 11:09 Drug: NS 0.9% 500 ml Route: IV; Rate: bolus; Site: right forearm; em 12:02 Follow up: IV Status: Completed infusion; IV Intake: 500ml em 11:09 Drug: Zofran 4 mg Route: IVP; Site: right forearm; hb 11:30 Follow up: Response: No adverse reaction; Nausea is decreased em 11:10 Drug: Rocephin - (cefTRIAXone) 1 grams Route: IVPB; Infused Over: 30 mins; Site: right hb forearm; 11:20 Follow up: Response: No adverse reaction; IV Status: Completed infusion; IV Intake: 10mlem Disposition: 08/30/18 11:21 Discharged to Home. Impression: Urinary tract infection, site not specified. - Condition is Stable. - Discharge Instructions: Urinary Tract Infection, Adult. - Prescriptions for cefpodoxime 100 mg Oral Tablet - take 2 tablet by ORAL route every 12 hours for 10 days take with food; 40 tablet. - Medication Reconciliation Form, Thank You Letter, Antibiotic Education, Prescription Opioid Use form. - Follow up: Private Physician; When: As needed; Reason: Recheck today's complaints, Re-evaluation by your physician. - Problem is new. - Symptoms have improved. Signatures: Dispatcher [employer] EDND Oneal Camacho, SENIOR PRIVATE CLIENT ADVISOR SENIOR PRIVATE CLIENT ADVISOR Mono Champagne MD MD rn Baxter, Heather, RN RN Corrections: (The following items were deleted from the chart) 12:03 11:21 08/30/2018 11:21 Discharged to Home. Impression: Urinary tract infection, site em not specified. Condition is Stable. Forms are Medication Reconciliation Form, Thank You Letter, Antibiotic Education, Prescription Opioid Use. Follow up: Private Physician; When: As needed; Reason: Recheck today's complaints, Re-evaluation by your physician. Problem is new. Symptoms have improved. rn
--- NOTE | 2018-08-30 11:22 | ER ---
Nurse's Notes [facility] Name: Allyn Echeverria Age: 73 yrs Sex: Female : 1945 Arrival Date: 08/30/2018 Time: 08:52 Bed 17 Private MD: Diagnosis: Urinary tract infection, site not specified Presentation: 08/30 09:07 Presenting complaint: Patient states: Bilateral flank and suprapubic pain x 2 days. hb Also reports urinary frequency and burning with urination. 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 Denies fever. Transition of care: patient was not received from another setting of care. Onset of symptoms was August 29, 2018. Risk Assessment: Do you want to hurt yourself or someone else? Patient reports no desire to harm self or others. Care prior to arrival: None. 09:07 Method Of Arrival: Wheelchair hb 09:07 Acuity: KANDY 3 hb 09:44 Initial Sepsis Screen: Does the patient meet any 2 criteria? No. Patient's initial em sepsis screen is negative. Does the patient have a suspected source of infection? Yes: Dysuria/Frequency/Urgency/UTI. Historical: - Allergies: 09:10 Ciprofloxacin; hb 09:10 Crestor; hb 09:10 Iodine (Anaphylaxis); hb 09:10 Magnevist; hb 09:10 Sulfa (Sulfonamide Antibiotics); hb - PMHx: 09:10 COPD; Hypertension; Lung Cancer; Hyperlipidemia; hb - Immunization history:: Adult Immunizations up to date. - Social history:: Smoking status: Patient uses tobacco products, smokes one-half pack cigarettes per day. - Ebola Screening: : No symptoms or risks identified at this time. - Family history:: not pertinent. - Hospitalizations: : No recent hospitalization is reported. Screenin:47 Abuse screen: Denies threats or abuse. Nutritional screening: No deficits noted. em Tuberculosis screening: No symptoms or risk factors identified. Fall Risk None identified. Assessment: 09:40 General: Appears in no apparent distress. comfortable, Behavior is calm, cooperative, em Denies fever. Pain: Complains of pain in pelvis and left leg Pain. Neuro: Level of Consciousness is awake, alert, obeys commands, Oriented to person, place, time, situation, Moves all extremities. Speech is normal. Cardiovascular: Denies chest pain, Capillary refill < 3 seconds Patient's skin is warm and dry. Respiratory: Reports shortness of breath at rest reports SOB for several months Airway is patent Respiratory effort is even, unlabored, Respiratory pattern is regular, symmetrical, Breath sounds are clear bilaterally. GI: Abdomen is non-distended, Reports nausea, Patient currently denies diarrhea, vomiting. : Urine is cloudy, Reports burning with urination, pain in suprapubic area reports 3 UTI's the past few months. EENT: No signs and/or symptoms were reported regarding the EENT system. Derm: Skin is intact, Skin is pink, warm \T\ dry. Musculoskeletal: Range of motion: intact in all extremities. 09:45 Reassessment: I agree with previous assessment. hb 11:00 Reassessment: Patient appears in no apparent distress at this time. Patient and/or em family updated on plan of care and expected duration. Pain level reassessed. Patient is alert, oriented x 3, equal unlabored respirations, skin warm/dry/pink. 11:48 Reassessment: Patient appears in no apparent distress at this time. Patient and/or em family updated on plan of care and expected duration. Pain level reassessed. Patient is alert, oriented x 3, equal unlabored respirations, skin warm/dry/pink. pending completion of NS bolus, will be discharged after Patient states feeling better. Vital Signs: 09:08 BP 148 / 77; Pulse 77; Resp 16; Temp 98.7; Pulse Ox 96% on R/A; Weight 77.11 kg; Height hb 5 ft. 4 in. (162.56 cm); Pain 6/10; 10:00 BP 152 / 77; Pulse 85; Resp 20; Temp 98.2(O); Pulse Ox 97% on R/A; em 11:00 BP 142 / 72; Pulse 79; Resp 21; Pulse Ox 99% on R/A; em 09:08 Body Mass Index 29.18 (77.11 kg, 162.56 cm) hb ED Course: 08:52 Patient arrived in ED. as 09:08 Triage completed. hb 09:08 Arm band placed on left wrist. hb 09:30 Mono Heard MD is Attending Physician. rn 09:32 Oneal Camacho LVN is Primary Nurse. em 09:47 Patient has correct armband on for positive identification. Placed in gown. Bed in low em position. Adult w/ patient. 09:47 No provider procedures requiring assistance completed. Urine collected: clean catch em specimen, cloudy. 10:35 Missed attempt(s): 24 gauge in right forearm. Bleeding controlled, band aid applied, dh3 catheter tip intact. 10:45 Inserted saline lock: 24 gauge in right forearm, using aseptic technique. dh3 11:02 Ultrasound completed. Patient tolerated well. sg3 11:05 Extrem Venous W Compression Telly US In Process Unspecified. EDMS 12:00 IV discontinued, intact, bleeding controlled, No redness/swelling at site. em Administered Medications: 11:09 Drug: NS 0.9% 500 ml Route: IV; Rate: bolus; Site: right forearm; em 12:02 Follow up: IV Status: Completed infusion; IV Intake: 500ml em 11:09 Drug: Zofran 4 mg Route: IVP; Site: right forearm; hb 11:30 Follow up: Response: No adverse reaction; Nausea is decreased em 11:10 Drug: Rocephin - (cefTRIAXone) 1 grams Route: IVPB; Infused Over: 30 mins; Site: right hb forearm; 11:20 Follow up: Response: No adverse reaction; IV Status: Completed infusion; IV Intake: 10mlem Intake: 11:20 IV: 10ml; Total: 10ml. em 12:02 IV: 500ml; Total: 510ml. em Outcome: 11:21 Discharge ordered by . rn 12:00 Discharged to home via wheelchair, with family. em 12:00 Condition: good 12:00 Discharge instructions given to patient, family, Instructed on discharge instructions, follow up and referral plans. medication usage, Demonstrated understanding of instructions, follow-up care, medications, Prescriptions given X 1. 12:03 Patient left the ED. em Addendum: 09/03/2018 15:52 Addendum: Culture Results: Positive urine culture. Bacteria is resistant to, has d m5 intermediate sensitivity, or is not tested against prescribed antibiotics. Report given to PHILLIP for further evaluation and then to dry house worker for follow up with patient. 16:12 Addendum: Culture Results: Prescription called-in to pharmacy of choice. Macrobid 100 d m5 mg PO BID x 10 days called in to [facility] by mo for Fariba Mcmahan NP. Signatures: Dispatcher [employer] EDKY Garywardt, Evangelina, AMY RN dm5 Oneal Camacho, SHIFT COMMANDER SHIFT COMMANDER Nuzhat Lopez Roman, MD MD rn Baxter, Heather, RN RN hb Herrera, Deanna 3 Savannah Alicia 3
[2018-08-30 12:08] VITALS: TEMP 98.2
[2018-08-30 12:09] VITALS: BP 142/72; O2SAT 99
[2018-08-30 18:34] LABS: Urine Blood 2+ (NEG); Urine Glucose 1+ (NEG); Urine Protein 3+ (NEG)
== END 2018-08-30 12:03 | disposition home or self-care (01) ==
LOC: ER 08:49
DX: N39.0 Urinary tract infection, site not specified (principal); F17.210 Nicotine dependence, cigarettes, uncomplicated; Z88.1 Allergy status to other antibiotic agents; Z88.2 Allergy status to sulfonamides; Z88.8 Allergy status to other drugs, medicaments and biological substances
CPT/HCPCS: 87077 ×3; 87086; 87088; 87186 ×3; 93970; 96361; 96374; 96375; 99284; J0696; J2405; 81003; 81015